=== PATIENT | female | born 1970 | race Caucasian/White ===

== ENCOUNTER 2018-08-15 09:32 | Outpatient (CLI) | payer OTHER, MEDICAID, SELFPAY ==
[2018-08-15] VITALS (8 sets, daily range): BP systolic 104–130; BP diastolic 36–77; PULSE 79–91; RESP 16–18; TEMP 36.7; O2SAT 95–100
--- NOTE | 2018-08-15 09:34 | DI.RAD.S_ITS ---
PROCEDURE: PAIN L INTERLAMINAR/CAUDAL INJ INDICATIONS: RADICULOPATHY FINDINGS: Fluoroscopic spot filming was performed to verify placement of spinal needles at the dorsal L5-S1 midline epidural level(s), as labeled on the films. Appropriate location(s) of the needle tip(s) was confirmed by injection of iodinated contrast. IMPRESSION: Successful needle tip localization for L5-S1 epidural steroid injection. Dictated by: Jose C Lowry M.D. on 08/15/2018 at 11:49 Approved by: Jose C Lowry M.D. on 08/15/2018 at 11:50
[2018-08-15] MEDS: MIDAZOLAM 5 MG/5 ML VIAL IV (10:40)
[2018-08-15] MEDS: fentaNYL 100 MCG/2 ML INJ 50 MCG IV (10:40)
[2018-08-15] MEDS: IOPAMIDOL 15 ML VIAL 3 ML INJ (10:45)
[2018-08-15] MEDS: BUPIVACAINE 0.25% (PF) VIAL 2 ML INJ (10:45)
[2018-08-15] MEDS: BETAMETHASONE 30 MG/5 ML MDV 6 MG INJ (10:46)
[2018-08-15] MEDS: DEXAMETHASONE 10 MG/ML VIAL 20 MG INJ (10:46)
--- NOTE | 2018-08-15 10:49 | PC.NURSE ---
ASSISTING PT OFF TABLE AND TRANSPORTING TO POST PROC AREA IN STABLE CONDITION
--- NOTE | 2018-08-15 10:52 | P.PCN_ITS ---
Procedures Date/Time Date of procedure: 08/15/18 Time of procedure: 10:51 General Procedure description: PROVIDER: Luis Parada DO Operative Note PREOP DIAGNOSIS 1. HNP WITH RADICULAR FEATURES, 2. MULTILEVEL CENTRAL STENOSIS, POST OP DIAGNOSIS 1. HNP WITH RADICULAR FEATURES, 2. MULTILEVEL CENTRAL STENOSIS, PROCEDURES 1. FLUORSCOPICALLY GUIDED CONTRAST CONTROLLED INTERLAMINAR EPIDURAL STEROID INJECTION - L5/S1 PHYSICIAN: Luis Parada DO INDICATIONS Daija is referred by Dr. Leyva for treatment of Bilateral Foraminal Stenosis L>R LE symptoms. FINDINGS Multilevel Central Spinal Stenosis with Nerve Root Compression DESCRIPTION OF PROCEDURE Fluoroscopically guided, contrast-controlled para left L5/S1 translaminar epidural steroid injection. Following denial of allergy and review of potential side effects and c omplications, including, but not necessarily limited to, infection, allergic reaction, local tissue breakdown, temporary as well as permanent nerve injury, paralysis, stroke and possible , the patient indicated that the patient understood and agreed to proceed. An informed consent document was signed by the patient, witnessed by a nurse, and placed in the patient's chart. Additionally, other treatment options including modalities, medications, and physical therapy were reviewed with the patient. After review of previous anaesthesic history and IV conscious sedation the patient was deemed safe to proceed with todays procedure with IV conscious sedation as ASA class II designation. Safety time-out was performed to confirm patient ID, procedure to be performed and site of procedure. IV sedation was accomplished with a combination of 2mg of Versed and 50mcg of Fentanyl administered by the RN after DO order, titrated to patient comfort during the course of the procedure while the patient remained responsive to all verbal commands. In the prone position, following sterile prep and drape of the lumbar region, the L5/S1 translaminar space was identified fluoroscopically. The skin was anesthetized via a 25-gauge, 1.5-inch needle with 1% lidocaine solution. At this point, a 22-gauge short bevel spinal needle was atraumatically introduced and advanced under fluoroscopic guidance into the region of the L5/S1 translaminar space. Depth was confirmed on lateral view. Radiological data, including multiple fluoroscopic views of the lumbar spine, reveal a spinal needle at the L5/S1 translaminar space. Lateral views then show placement of the needle in the epidural space. Subsequent views show contrast material flowing superiorly and inferiorly in the epidural space. No vascular or intrathecal uptake is observed. At this point, using loss of resistance technique with saline and air, the epidural space was entered. This was confirmed following negative aspiration with injection of approximately 1.5 cc of Isovue 200, showing excellent epidural flow without vascular or intrathecal uptake. At this point, 1 cc of 1% lidocaine solution combined with 3cc or 20mg of dexamethasone and 50mcg of Fentanyl was injected without incident. The patent tolerated the procedure without signs of symptoms of complications prior to transfer to the recovery area for further monitoring. The patient was then transferred to the recovery area where they were observed for an appropriate period of time after the injection. The patient reported a VAS score of 6 prior to the procedure and a post-procedure VAS of 0. Total Fluoroscopy Time: 11.8 seconds Total Conscious Sedation Time: 24min POST OP INSTRUCTIONS The patient was provided a Pain Log to continue to record their response to the target-specific procedure prior to follow-up visit with their referring physician. Additionally, specific post-injection care instructions and a contact number to our office were provided if concerns arise regarding possible complications associated with the procedure are suspected. Luis Parada DO
--- NOTE | 2018-08-15 11:31 | PC.NURSE ---
Pt returned from procedure awake, alert and able to transfer self from W/C to chair with standby assist. Resumed monitoring from Fariha HUERTA.
== END 2018-08-15 11:30 ==
LOC: RAD 09:33
PROVIDERS: PCP Family Medicine; Visit Provider Physical Medicine & Rehabilitation
DX: M51.16 Intervertebral disc disorders with radiculopathy, lumbar region (principal); M48.07 Spinal stenosis, lumbosacral region; M48.061 Spinal stenosis, lumbar region without neurogenic claudication
CPT/HCPCS: 62323; 99152; J0702; J1100; J2250; J3010

== ENCOUNTER 2018-11-16 10:12 | Outpatient (CLI) | payer OTHER, MEDICAID, SELFPAY ==
[2018-11-16] VITALS (8 sets, daily range): BP systolic 118–137; BP diastolic 60–80; PULSE 71–91; RESP 16–18; TEMP 36.7; O2SAT 99–100
--- NOTE | 2018-11-16 10:14 | DI.RAD.S_ITS ---
PROCEDURE: PAIN L/SI FACET INJ/BLK 1STL INDICATIONS: RADICULOPATHY FINDINGS: Fluoroscopic spot filming was performed to verify placement of spinal needles overlying L4-5, L5-S1 level(s), as labeled on the films. Appropriate location(s) of the needle tip(s) was confirmed by injection of iodinated contrast. IMPRESSION: Fluoroscopic markers as above. Recommend correlation to real-time operative report. Dictated by: Tresa Nolen M.D. on 11/16/2018 at 18:28 Approved by: Tresa Nolen M.D. on 11/16/2018 at 18:29
--- NOTE | 2018-11-16 11:13 | P.PCN_ITS ---
Procedures Date/Time Date of procedure: 11/16/18 Time of procedure: 11:13 General Procedure description: PREOP DIAGNOSIS 1. FACET ARTHROPATHY 2. AXIAL LBP 3. MULTILEVEL DDD POST OP DIAGNOSIS 1. FACET ARTHROPATHY 2. AXIAL LBP 3. MULTILEVEL DDD PROCEDURES 1. FLUORSCOPICALLY GUIDED CONTRAST CONTROLLED FACET JOINT INJECTIONS BILATERAL L4/5, L5/S1 PHYSICIAN: Luis Parada, DO INDICATIONS Daija is referred by Dr. Leyva for treatment of Axial LBP FINDINGS Multilevel Facet Arthropathy with Clinically significant axial LBP DESCRIPTION OF PROCEDURE Fluoroscopically guided, contrast-controlled bilateral L4/5, L5/S1 facet joint injections. Following review of allergy and review of potential side effects and complications, including, but not necessarily limited to, infection, allergic reaction, local tissue breakdown, stroke, temporary or permanent nerve injury, paralysis, and possible , the patient indicated that the patient understood and agreed to proceed. An informed consent document was signed by the patient, witnessed by a nurse, and placed in the patient's chart. Additionally, other treatment options including medications, modalities, and physical therapy were reviewed with the patient. After review of previous anaesthesic history and IV conscious sedation the patient was deemed safe to proceed with todays procedure with IV conscious sedation as ASA class II designation. Safety time-out was performed to confirm patient ID, procedure to be performed and site of procedure. IV sedation was accomplished with a combination of 3mg of Versed and 50mcg of Fentanyl was administered by the RN after DO order, titrated to patient comfort during the course of the procedure while the patient remained responsive to all verbal commands In the prone position, following sterile prep and drape of the lumbar region, the posterior aspect of the L4/5, L5/S1 facet joints were identified fluoroscopically. The skin was anesthetized via a 25-gauge 1.5-inch needle with 1% lidocaine solution into the corresponding facet joints. At this point, a 22- gauge 3.5-inch spinal needle was atraumatically introduced and advanced under fluoroscopic guidance into the corresponding facet joints. Following negative aspiration, injections of approximately 0.2-cc of Isovue 200 confirmed interarticular placement without vascular uptake. The identical procedure was then performed at the L4/5, L5/S1 facet joints on the left. Radiological data, including multiple fluoroscopic views of the lumbosacral spine, reveal a spinal needle at the L4/5, L5/S1 facet joints bilaterally. Subsequent views show flow of contrast material both superiorly and inferiorly within the joint space without vascular or intrathecal uptake. At this point, a total of 0.5 cc including a mixture of 0.25cc Marcaine and 0.25cc betamethasone was injected without complication into each of the corresponding facet joints. The patient tolerated the procedure well without signs or symptoms of complications prior to transfer to the recovery area continued monitoring without incident. The patient was then transferred to the recovery area where they were observed for an appropriate period of time after the injection. The patient reported a VAS score of 7 prior to the procedure and a post- procedure VAS of 0. Total Fluoroscopy Time: 20.3 seconds Total Conscious Sedation Time: 24min POST OP INSTRUCTIONS The patient was provided a Pain Log to continue to record their response to the target-specific procedure prior to follow-up visit with their referring physician. Additionally, specific post-injection care instructions and a contact number to our office were provided if concerns arise regarding possible complications associated with the procedure are suspected. Luis Parada DO Complications: none
[2018-11-16] MEDS: fentaNYL 100 MCG/2 ML INJ 50 MCG IV (11:20)
[2018-11-16] MEDS: MIDAZOLAM 5 MG/5 ML VIAL IV (11:20)
[2018-11-16] MEDS: LIDOCAINE 1% 20 ML 10 ML INJ (11:24)
[2018-11-16] MEDS: BETAMETHASONE 30 MG/5 ML MDV 12 MG INJ (11:24)
[2018-11-16] MEDS: IOPAMIDOL 15 ML VIAL 3 ML INJ (11:24)
[2018-11-16] MEDS: BUPIVACAINE 0.5% (PF) VIAL 2 ML INJ (11:24)
--- NOTE | 2018-11-16 11:39 | PC.NURSE ---
Pt tolerated procedure well. Pt able to get off the table with standby assist. Transferred pt via wheelchair to pre procedure room for continued monitoring with Fariha HUERTA.
--- NOTE | 2018-11-16 11:49 | PC.NURSE ---
ACCEPTED CARE OF PT IN POST PROC AREA IN STABLE CONDITION
== END 2018-11-16 12:03 | disposition home or self-care (01) ==
LOC: RAD 10:13
PROVIDERS: PCP Family Medicine; Visit Provider Physical Medicine & Rehabilitation
DX: M51.26 Other intervertebral disc displacement, lumbar region (principal); M47.27 Other spondylosis with radiculopathy, lumbosacral region
CPT/HCPCS: 64493; 64494; 99152; J0702; J2250; J3010

== ENCOUNTER 2019-03-22 11:01 | Outpatient (CLI) | payer OTHER, MEDICAID, SELFPAY ==
[2019-03-22] VITALS (8 sets, daily range): BP systolic 125–146; BP diastolic 66–87; PULSE 74–97; RESP 16; TEMP 37.1; O2SAT 96–100
--- NOTE | 2019-03-22 11:06 | DI.RAD.S_ITS ---
PROCEDURE: XR SHOULDER LT MIN 2V INDICATIONS: Shoulder pain and impingement TECHNIQUE: 3 views of the shoulder were acquired. COMPARISON: None. FINDINGS: Bones: No fractures or dislocations. No suspicious bony lesions. Visualized ribs appear intact. Severe AC joint degeneration. Prominent glenohumeral spurring and sclerosis Soft tissues: No suspicious soft tissue calcifications. IMPRESSION: Moderate left shoulder joint degeneration. If the patient's pain or other symptoms persist, consider further evaluation with MRI Dictated by: Travon Lopes M.D. on 03/22/2019 at 14:03 Approved by: Travon Lopes M.D. on 03/22/2019 at 14:25
--- NOTE | 2019-03-22 11:06 | DI.RAD.S_ITS ---
PROCEDURE: XR SHOULDER RT MIN 2V INDICATIONS: Shoulder pain and impingement TECHNIQUE: 3 views of the shoulder were acquired. COMPARISON: None. FINDINGS: Bones: No fractures or dislocations. No suspicious bony lesions. Visualized ribs appear intact. Severe AC joint degeneration. Slight superior subluxation of the lateral clavicle relative to the acromion, technically age-indeterminate finding. Glenohumeral joint spurring and sclerosis are also noted Soft tissues: No suspicious soft tissue calcifications. IMPRESSION: Right shoulder joint degeneration as above Dictated by: Travon Lopes M.D. on 03/22/2019 at 14:01 Approved by: Travon Lopes M.D. on 03/22/2019 at 14:03
--- NOTE | 2019-03-22 11:06 | DI.RAD.S_ITS ---
PROCEDURE: PAIN L INTERLAMINAR/CAUDAL INJ INDICATIONS: SPINAL STENOSIS FINDINGS: Fluoroscopic spot filming was performed to verify placement of spinal needles at the L5-S1 level(s), as labeled on the films. Appropriate location(s) of the needle tip(s) was confirmed by injection of iodinated contrast. Dictated by: Travon Lopes M.D. on 03/22/2019 at 15:36 Approved by: Travon Lopes M.D. on 03/22/2019 at 15:36
--- NOTE | 2019-03-22 11:06 | DI.RAD.S_ITS ---
PROCEDURE: XR CERVICAL SPINE 4V OR 5V INDICATIONS: Bilateral arm paresthesias TECHNIQUE: 6 views of the cervical spine acquired. COMPARISON: None. FINDINGS: Bones: No fractures or dislocations to the T1 level. Straightening of the normal lordotic curvature. Multilevel degenerative endplate sclerosis and spurring. Diffuse facet arthropathy. Chronic appearing ununited osteophyte seen at the C4-C5 and C5-C6 level. Mild narrowing of the C4-C5 disc space. Mild C7-T1 left bony foraminal stenosis Mild right C4-C5 bony foraminal narrowing. Soft tissues: No prevertebral soft tissue swelling. IMPRESSION: Mild diffuse cervical spondylosis and facet arthropathy. Straightening of the normal lordotic curvature. Mild left C7-T1 bony foraminal stenosis Mild right C4-C5 bony foraminal stenosis Dictated by: Travon Lopes M.D. on 03/22/2019 at 16:44 Approved by: Travon Lopes M.D. on 03/22/2019 at 16:48
[2019-03-22] MEDS: fentaNYL 100 MCG/2 ML INJ 50 MCG IV (13:05)
[2019-03-22] MEDS: MIDAZOLAM 5 MG/5 ML VIAL IV (13:05)
[2019-03-22] MEDS: DEXAMETHASONE 10 MG/ML VIAL 20 MG INJ (13:07)
[2019-03-22] MEDS: IOPAMIDOL 15 ML VIAL 3 ML INJ (13:07)
[2019-03-22] MEDS: BUPIVACAINE 0.25% (PF) VIAL 2 ML INJ (13:07)
[2019-03-22] MEDS: BETAMETHASONE 30 MG/5 ML MDV 6 MG INJ (13:08)
--- NOTE | 2019-03-22 13:09 | PC.NURSE ---
ASSISTING PT OFF TABLE AND TRANSPORTING TO POST PROC AREA IN STABLE CONDITION.
--- NOTE | 2019-03-22 13:14 | P.PCN_ITS ---
Procedures Date/Time Date of procedure: 03/22/19 Time of procedure: 13:14 General Procedure description: PROVIDER: Luis Parada DO Operative Note PREOP DIAGNOSIS 1. HNP WITH RADICULAR FEATURES, 2. MULTILEVEL CENTRAL STENOSIS, POST OP DIAGNOSIS 1. HNP WITH RADICULAR FEATURES, 2. MULTILEVEL CENTRAL STENOSIS, PROCEDURES 1. FLUORSCOPICALLY GUIDED CONTRAST CONTROLLED INTERLAMINAR EPIDURAL STEROID INJECTION - L5/S1 PHYSICIAN: Luis Parada DO INDICATIONS Daija is referred by Dr. Leyva for treatment of Bilateral Foraminal Stenosis L>R LE symptoms. FINDINGS Multilevel Central Spinal Stenosis with Nerve Root Compression DESCRIPTION OF PROCEDURE Fluoroscopically guided, contrast-controlled L5/S1 translaminar epidural steroid injection. Following review of allergy and review of potential side effects and complicati ons, including, but not necessarily limited to, infection, allergic reaction, local tissue breakdown, temporary as well as permanent nerve injury, paralysis, stroke and possible , the patient indicated that the patient understood and agreed to proceed. An informed consent document was signed by the patient, witnessed by a nurse, and placed in the patient's chart. Additionally, other treatment options including modalities, medications, and physical therapy were reviewed with the patient. After review of previous anaesthesic history and IV conscious sedation the patient was deemed safe to proceed with todays procedure with IV conscious sedation as ASA class II designation. Safety time-out was performed to confirm patient ID, procedure to be performed and site of procedure. IV sedation was accomplished with a combination of 2mg of Versed and 50mcg of Fentanyl administered by the RN after DO order, titrated to patient comfort during the course of the procedure while the patient remained responsive to all verbal commands. In the prone position, following sterile prep and drape of the lumbar region, the L5/S1 translaminar space was identified fluoroscopically. The skin was ane sthetized via a 25-gauge, 1.5-inch needle with 1% lidocaine solution. At this point, a 22-gauge short bevel spinal needle was atraumatically introduced and advanced under fluoroscopic guidance into the region of the L5/S1 translaminar space. Depth was confirmed on lateral view. Radiological data, including multiple fluoroscopic views of the lumbar spine, reveal a spinal needle at the L5/S1 translaminar space. Lateral views then show placement of the needle in the epidural space. Subsequent views show contrast material flowing superiorly and inferiorly in the epidural space. No vascular or intrathecal uptake is observed. At this point, using loss of resistance technique with saline and air, the epidural space was entered. This was confirmed following negative aspiration with injection of approximately 1.5 cc of Isovue 200, showing excellent epidural flow without vascular or intrathecal uptake. At this point, 1cc of 1% lidocaine solution combined with 3cc or 20mg of dexamethasone and 6mg of betamethasone was injected without incident. The patent tolerated the procedure without signs of symptoms of complications prior to transfer to the recovery area for further monitoring. The patient was then transferred to the recovery area where they were observed for an appropriate period of time after the injection. The patient reported a VAS score of 6 prior to the procedure and a post-procedure VAS of 0. Total Fluoroscopy Time: 11.8 seconds Total Conscious Sedation Time: 24min POST OP INSTRUCTIONS The patient was provided a Pain Log to continue to record their response to the target-specific procedure prior to follow-up visit with their referring physician. Additionally, specific post-injection care instructions and a contact number to our office were provided if concerns arise regarding possible complications associated with the procedure are suspected. Luis Parada, Complications: none
== END 2019-03-22 13:42 | disposition home or self-care (01) ==
LOC: RAD 11:06
PROVIDERS: Family Provider Family Medicine; PCP Family Medicine; Visit Provider Physical Medicine & Rehabilitation
DX: M51.17 Intervertebral disc disorders with radiculopathy, lumbosacral region (principal); M48.07 Spinal stenosis, lumbosacral region; M25.511 Pain in right shoulder; M25.512 Pain in left shoulder; M19.011 Primary osteoarthritis, right shoulder; M19.012 Primary osteoarthritis, left shoulder; M47.22 Other spondylosis with radiculopathy, cervical region; M48.02 Spinal stenosis, cervical region; M48.03 Spinal stenosis, cervicothoracic region; R20.2 Paresthesia of skin; M75.42 Impingement syndrome of left shoulder; M75.41 Impingement syndrome of right shoulder
CPT/HCPCS: 62323; 72050; 73030; 99152; J0702; J1100; J2250; J3010

== ENCOUNTER → 2019-09-06 09:15 | Outpatient (CLI) | payer OTHER, MEDICAID, SELFPAY | PROVIDERS: Family Provider Family Medicine; PCP Family Medicine; Referring Provider Registered Nurse; Visit Provider Registered Nurse | DX: M25.511 Pain in right shoulder (principal); M25.512 Pain in left shoulder; M54.12 Radiculopathy, cervical region | CPT/HCPCS: 95886; 95911 ==

== ENCOUNTER 2019-09-12 13:48 | Emergency (ER) | payer OTHER, MEDICAID, SELFPAY ==
--- NOTE | 2019-09-12 13:56 | DI.RAD.S_ITS ---
PROCEDURE: XR CHEST 1V INDICATIONS: chest pain TECHNIQUE: One view of the chest was acquired. COMPARISON: None. FINDINGS: Surgical changes and devices: None. Lungs and pleura: Lungs are clear. No pleural effusions or pneumothorax. Mediastinum: Mediastinal contours appear normal. Heart size is enlarged. Bones and chest wall: No suspicious bony lesions. Overlying soft tissues appear unremarkable. IMPRESSION: No acute pulmonary process. Dictated by: Tresa Nolen M.D. on 09/12/2019 at 14:21 Approved by: Tresa Nolen M.D. on 09/12/2019 at 14:23
[2019-09-12 13:57] VITALS: BP 161/75; PULSE 77; RESP 20; TEMP 36.7; O2SAT 97
--- NOTE | 2019-09-12 14:06 | ED.CHESTPAIN ---
HPI - Chest Pain General Chief Complaint: Chest Pain Stated Complaint: chest tightness/cat scratch fever x21 days Time Seen by Provider: 09/12/19 14:06 Source: patient Mode of arrival: Ambulatory History of Present Illness HPI narrative: 49-year-old woman who presents to the emergency room because her primary care doctor told for to come for further evaluation of chest pain. Her story is rather scattered and her medical history is complicated by fibromyalgia, chronic pain for which she is on chronic prescribed opioids, asthma with continued tobacco abuse, 2 prior brain aneurysms, bilateral shoulder pain with upper extremity paresthesias. She was scheduled to come to [place] today for EMG studies. She had called her primary doctor complaining about 4 episodes of chest pain over the last week. The 1st 3 were all associated with being outside and working in her garden. Initially started center chest radiated across the entire chest in a bandlike pattern and then up into both shoulders associated with dyspnea and resolved spontaneously within 30 minutes. She had another episode while driving to this scheduled EMG study today. She does not describe any diaphoresis or reflux type symptomatology when she has experienced these episodes. She presented to her outpatient study and then came to the emergency room. While in the emergency room sitting and talking comfortably she describes similar central chest pain radiating in a bandlike pattern. EKG is entirely unremarkable on initial presentation. The patient herself does not seem to be particularly concerned with the chest pain has attributed it to her asthma and chronic shoulder pain and continues to return to the fact that her doctor told her to come to the ER. She also notes that she currently has 15 kittens living in her house. She is working on taming the kittens to rehab was them. She notes that she is allergic to cats and it does make her asthma worse. She has some scratches over her lower extremities and is somewhat concerned that she may have cat scratch fever. Related Data Home Medications Medication Instructions Recorded Confirmed albuterol sulfate 5 mg/mL(0.5 %) 2.5 mg INHALATION TID-QID PRN 07/27/18 09/12/19 solution for nebulization albuterp; #1 ea 07/27/18 04/12/19 atorvastatin 40 mg tablet 40 mg PO DAILY 07/27/18 09/12/19 cholecalciferol (vitamin D3) 25 1,000 unit PO DAILY 07/27/18 09/12/19 mcg (1,000 unit) capsule cranberry 500 mg capsule 500 mg PO DAILY cap 07/27/18 09/12/19 diazepam 5 mg tablet 5 mg PO BID 07/27/18 09/12/19 fluticasone 500 mcg-salmeterol 50 1 inhalation INHALATION BID 07/27/18 09/12/19 mcg/dose blistr powdr for inhalation gabapentin 300 mg capsule 300 mg PO BID 07/27/18 09/12/19 hair/skin/nail PO .qd 07/27/18 09/12/19 hydrocodone 5 mg-acetaminophen 325 1 tab PO Q6H 07/27/18 09/12/19 mg tablet ipratropium bromide 0.02 % 1.25 ml INHALATION Q6-8H PRN 07/27/18 09/12/19 solution for inhalation metformin 1,000 mg tablet 1,000 mg PO DAILY 07/27/18 09/12/19 omeprazole 20 mg capsule,delayed 20 mg PO DAILY 07/27/18 09/12/19 release tiotropium bromide 1.25 2 puff INHALATION DAILY 07/27/18 09/12/19 mcg/actuation mist for inhalation Previous Rx's Medication Instructions Recorded celecoxib 200 mg capsule See Rx Instructions .ROUTE 07/09/19 .COMPLEX #30 capsule diclofenac sodium 1 % topical gel 2 g TOP QID #100 gram MDD 8 gm 07/27/19 Allergies Allergy/AdvReac Type Severity Reaction Status Date / Time cinnamon Allergy Severe Anaphylaxis Verified 09/12/19 13:03 peanut Allergy Severe Anaphylaxis Verified 09/12/19 13:03 bupropion [From Wellbutrin] Allergy Intermediate vision and Verified 09/12/19 13:03 auditory reaction oxycodone AdvReac Intermediate itching Verified 09/12/19 13:03 Review of Systems Review of Systems Narrative: Pertinent positive and negative findings as per HPI Remarkably positive for -chills, generalized weakness -minor dry cough that is unchanged, dyspnea it is associated with the episodes of chest pain -muscle weakness with upper extremity numbness and tingling -fatigue worse over the last at least week if not longer Remainder of review of systems is otherwise unremarkable for Constitutional: Fevers, ENT: No sore throat, neck pain, ear pain CV: Chest pain, palpitations, dyspnea on exertion GI: Nausea, vomiting, diarrhea, change in bowel habits, black or bloody stools : Dysuria, hematuria, flank pain Skin: Rashes, nonhealing lesions Neuro: Syncope, dizziness, Psych: Depression, anxiety, suicidal ideation Patient History Medical History (Updated 09/12/19 @ 16:04 by Lorena Serrano MD) Acid reflux (Acute) Bilateral shoulder pain (Chronic) Cervical radicular pain (Chronic) COPD (chronic obstructive pulmonary disease) (Acute) Diabetes (Acute) DJD of both shoulders (Acute) Facet arthropathy, lumbosacral (Chronic) Hyperlipidemia (Acute) Trochanteric bursitis of both hips (Chronic) Surgical History History of (Acute) History of carpal tunnel surgery of left wrist (Acute) History of carpal tunnel surgery of right wrist (Acute) History of knee surgery (Acute) Status post de Quervain's release surgery (Acute) Family History Mother Diabetes mellitus Father Emphysema lung Family/Other Breast cancer Liver disease Social History (Updated 03/30/19 @ 13:05 by Marielle Sheppard) marital status: Smoking Status: Current every day smoker Smoking Status: Current every day smoker Exam Narrative Exam Narrative: General: Healthy appearing, in no acute distress. Able to cooperate fully with history. Well-nourished well-developed HEENT: Moist mucous membranes, normal sclera with reactive pupils, Neck: No JVD, supple, no cervical adenopathy Respiratory: Lungs with mild scattered wheezing in the upper lung narvaez but no rales no rhonchi. Full and symmetrical air movement Cardiac: Regular rate and rhythm no murmurs no bruits Abdomen: Soft nontender good bowel tones, no flank pain Skin: Warm and dry, multiple minor scratches from her kittens over both lower extremities none of which are overtly infected, have any lymphangitis spread, or any discharge. Groin: No inguinal adenopathy Neurologic: Grossly neurologically intact with no obvious asymmetries or abnormalities Extremities: No trauma, well perfused Psych: Cooperative, appropriate affect Initial Vital Signs Initial Vital Signs: Vital Signs Temperature 98.1 F 09/12/19 13:57 Pulse Rate 77 09/12/19 13:57 Respiratory Rate 20 09/12/19 13:57 Blood Pressure 161/75 H 09/12/19 13:57 Pulse Oximetry 97 09/12/19 13:57 Course Orders Ordered: ED Orders 09/12/19 13:56 XR chest 1V Stat EKG-12 Lead Stat 09/12/19 14:30 Complete Blood Count AUTO DIFF Stat Comprehensive Metabolic Panel Stat Lipase Stat Partial Thromboplastin Time Stat Prothrombin Time INR Stat Troponin & CK Cardiac Panel Stat Vital Signs Vital signs: Vital Signs - 8 hr 09/12/19 13:57 09/12/19 14:35 09/12/19 15:00 Temperature 98.1 F Pulse Rate 77 77 73 Respiratory Rate 20 18 19 Blood Pressure 161/75 H Blood Pressure [Right Arm] 135/98 H 143/64 H Pulse Oximetry 97 97 94 09/12/19 15:30 Temperature Pulse Rate 79 Respiratory Rate 19 Blood Pressure Blood Pressure [Right Arm] 147/61 H Pulse Oximetry 94 MDM - Chest Pain Medical Records Data Attestation: I reviewed the patient's medical records. Lab Data Attestation: I reviewed the patient's lab results. Result diagrams: 09/12/19 14:30 09/12/19 14:30 Labs: Lab Results 09/12/19 09/12/19 09/12/19 Range/Units 14:30 14:30 14:30 WBC 6.9 (4.5-11.0) X10^3/uL RBC 4.33 (4.0-5.2) X10^6/uL Hgb 10.6 L (12.0-16.0) g/dL Hct 33.1 L (36-46) % MCV 76.4 L (80-100) fL MCH 24.6 L (26-34) PG MCHC 32.2 (30-36) % RDW 17.0 H (11.6-14.8) % Plt Count 231 (150-400) X10^3/uL Neut % (Auto) 59.3 (50-75) % Lymph % (Auto) 32.5 (25-40) % Mchenry % (Auto) 4.6 (3-14) % Eos % (Auto) 2.3 (2-4) % Baso % (Auto) 1.3 (0-2) % Neut # (Auto) 4100 (3968-7506) /uL Lymph # (Auto) 2300 (4629-2045) /uL Mchenry # (Auto) 300 (0-900) /uL Eos # (Auto) 200 (0-450) /uL Baso # (Auto) 100 (0-100) /uL PT 14.0 H (10.1-12.7) SECONDS INR 1.2 (0.9-1.3) APTT 33 (26.4-36.2) SECONDS Sodium 137 (137-145) mmol/L Potassium 3.6 (3.4-5.1) mmol/L Chloride 106 (98-107) mmol/L Carbon Dioxide 25 (22-32) mmol/L BUN 12 (7-17) mg/dL Creatinine 0.59 (0.52-1.04) mg/dL Estimated GFR > 60.0 (>60) mL/min BUN/Creatinine Ratio 20.3 (6-22) Glucose 98 (70-100) mg/dL Calcium 9.0 (8.4-10.2) mg/dL Total Bilirubin 0.3 (0.2-1.3) mg/dL AST 22 (14-36) IU/L ALT 13 (<35) IU/L Alkaline Phosphatase 59 (38-126) U/L Total Creatine Kinase 196 H (30-135) U/L CK-MB (CK-2) 2.91 H (<2.37) ng/mL CK-MB (CK-2) Rel Index 1.5 (1.5-5.0) % Troponin I < 0.012 (0.01-0.034) ng/mL Total Protein 6.5 (6.3-8.2) g/dL Albumin 4.0 (3.5-5.0) g/dL Globulin 2.5 (1.7-4.1) g/dL Albumin/Globulin Ratio 1.6 (1.0-2.8) Lipase 47 (23-300) U/L Imaging Data Chest x-ray: Radiologist's Impression: IMPRESSION: No acute pulmonary process. Dictated by: Tresa Nolen M.D. on 09/12/2019 at 14:21 ECG Data Attestation: I personally reviewed and interpreted this ECG as follows: Interpretation: Sinus rhythm at a rate of 79. Normal axis, normal interval No acute ischemic changes MDM Narrative Medical decision making narrative: 49-year-old woman presents with a history chest pain radiating up into the shoulders and down her arms for the last week seems to be getting worse and she has had now for episodes. Workup today is entirely unremarkable. She had another episode of the pain earlier this morning and then again while in the emergency department with no EKG changes and no elevated troponin. Based on her history and lab work today my suspicion for cardiac etiology for this chest pain is low. If she continues to have persistent pain then an outpatient myocardial perfusion study or other stress testing may be very appropriate. Will ask that she follow-up with her primary care physician. She is safe for home discharge at this time Discharge Plan Departure Patient Disposition: Home Clinical Impression: Elevated blood pressure reading Chest pain Qualifiers: Chest pain type: other chest pain Qualified Code(s): R07.89 - Other chest pain Instructions: DI for Atypical Chest Pain Activity Restrictions/Additional Instructions: Thank you for coming in today Your workup exam EKG and chest x-ray do not suggest your heart as the reason for your chest pain. This is not an acute heart attack or heart attack like syndrome. I am finding no evidence of infection or lung issues. I suspect that some of the pain you are experiencing 3 your upper back shoulders an interior jaw is related to her fibromyalgia as well as her chronic shoulder pain. Please discuss this with her primary care physician. She may decide that some outpatient cardiac risk stratify and studies, like stress tests, may be appropriate. Regarding her elevated blood pressure in the emergency department, we do not typically diagnosis high blood pressure from a single day reading. Please keep track of these numbers and again discussed these with your primary care physician to make sure that we are not missing the opportunity to treat chronic issues that can cause problems. If your finding new symptoms or have additional concerns, please feel free to return to the emergency department and I am happy to re-evaluate. I wish you the very best Prescriptions: No Action celecoxib 200 mg capsule See Rx Instructions .ROUTE .COMPLEX Qty: 30 RF: 4 diclofenac sodium 1 % gel 2 g TOP QID MDD 8 gm Qty: 100 RF: 5 atorvastatin 40 mg tablet 40 mg PO DAILY RF: 0 metformin 1,000 mg tablet 1,000 mg PO DAILY RF: 0 fluticasone propion-salmeterol [Wixela Inhub] 500-50 mcg/dose blister with device 1 inhalation INHALATION BID RF: 0 gabapentin 300 mg capsule 300 mg PO BID RF: 0 omeprazole 20 mg capsule,delayed release(DR/EC) 20 mg PO DAILY RF: 0 cranberry 500 mg capsule 500 mg PO DAILY RF: 0 Spiriva Respimat 1.25 mcg/actuation mist 2 puff INHALATION DAILY RF: 0 (DME) albuterp; inhaler Qty: 1 RF: 0 hair/skin/nail capsule PO .qd RF: 0 hydrocodone-acetaminophen 5-325 mg tablet 1 tab PO Q6H RF: 0 albuterol sulfate 5 mg/mL solution for nebulization 2.5 mg INHALATION TID-QID PRNRF: 0 ipratropium bromide 0.02 % solution 1.25 ml INHALATION Q6-8H PRNRF: 0 diazepam 5 mg tablet 5 mg PO BID RF: 0 cholecalciferol (vitamin D3) 1,000 unit capsule 1,000 unit PO DAILY RF: 0 Referrals: Lisa Leyva MD [Primary Care Provider] -
[2019-09-12 14:35] VITALS: BP 135/98; PULSE 77; RESP 18; O2SAT 97
[2019-09-12 14:47] LABS: Add Manual Diff / Slide Review NO; Basophils Absolute Auto 100 /uL (0-100); Basophils Percent Auto 1.3 % (0-2); Eosinophils Absolute Auto 200 /uL (0-450); Eosinophils Percent Auto 2.3 % (2-4); Hematocrit 33.1 % (36-46); Hemoglobin 10.6 g/dL (12.0-16.0); Lymphocytes Absolute Auto 2300 /uL (1100-4500); Lymphocytes Percent Auto 32.5 % (25-40); Mean Corpuscular HGB Conc 32.2 % (30-36); Mean Corpuscular Hemoglobin 24.6 PG (26-34); Mean Corpuscular Volume 76.4 fL (80-100); Monocytes Absolute Auto 300 /uL (0-900); Monocytes Percent Auto 4.6 % (3-14); Neutrophils Absolute Auto 4100 /uL (1500-7000); Neutrophils Percent Auto 59.3 % (50-75); Platelet Count 231 X10^3/uL (150-400); Red Blood Cell Count 4.33 X10^6/uL (4.0-5.2); White Blood Cell Count 6.9 X10^3/uL (4.5-11.0)
[2019-09-12 14:53] LABS: INR 1.2 (0.9-1.3)
[2019-09-12 14:56] LABS: PTT Partial Thromboplastin Tim 33 SECONDS (26.4-36.2)
[2019-09-12 14:58] LABS: Alanine Aminotransferase 13 IU/L (<35); Albumin Globulin Ratio 1.6 (1.0-2.8); Alkaline Phosphatase 59 U/L (38-126); Aspartate Aminotransferase 22 IU/L (14-36); BUN Creatinine Ratio 20.3 (6-22); Bilirubin Total 0.3 mg/dL (0.2-1.3); Blood Urea Nitrogen 12 mg/dL (7-17); Carbon Dioxide 25 mmol/L (22-32); Chloride 106 mmol/L (98-107); Creatine Kinase 196 U/L (30-135); Estimated Glomerular Filt Rate > 60.0 mL/min (>60); Globulin 2.5 g/dL (1.7-4.1); Glucose 98 mg/dL (70-100); HEMOLYSIS < 15 (0-50); Lipase 47 U/L (23-300); Potassium 3.6 mmol/L (3.4-5.1); Sodium 137 mmol/L (137-145); Total Protein 6.5 g/dL (6.3-8.2)
[2019-09-12 15:00] VITALS: BP 143/64; PULSE 73; RESP 19; O2SAT 94
[2019-09-12 15:09] LABS: Troponin I < 0.012 ng/mL (0.01-0.034)
[2019-09-12 15:14] LABS: CKMB % Relative Index 1.5 % (1.5-5.0); Creatine Kinase MB 2.91 ng/mL (<2.37)
[2019-09-12 15:30] VITALS: BP 147/61; PULSE 79; RESP 19; O2SAT 94
[2019-09-12 16:00] VITALS: BP 148/73; PULSE 89; RESP 20; O2SAT 96
== END 2019-09-12 16:21 | disposition home or self-care (01) ==
PROVIDERS: Emergency Provider Emergency Medicine; Family Provider Family Medicine; PCP Family Medicine
DX: R07.89 Other chest pain (principal); R03.0 Elevated blood-pressure reading, without diagnosis of hypertension; M51.26 Other intervertebral disc displacement, lumbar region; M19.011 Primary osteoarthritis, right shoulder; M19.012 Primary osteoarthritis, left shoulder; M25.512 Pain in left shoulder; M25.511 Pain in right shoulder; M47.27 Other spondylosis with radiculopathy, lumbosacral region; Z98.890 Other specified postprocedural states; Z86.79 Personal history of other diseases of the circulatory system
CPT/HCPCS: 20611; 36415; 71045; 80053; 82550; 82553; 83690; 84484; 85025; 85610; 85730; 93005; 99214; 99284; J0702

== ENCOUNTER → 2019-10-29 09:46 | Outpatient (CLI) | payer OTHER, MEDICAID, SELFPAY ==
[2019-10-30 07:49] LABS: COVID19 Sendout Not Detected (Not Detect)
== END ==
PROVIDERS: Family Provider Family Medicine; PCP Family Medicine; Visit Provider Physician Assistant
DX: Z11.59 Encounter for screening for other viral diseases (principal)
CPT/HCPCS: 87635

== ENCOUNTER 2019-11-01 13:57 | Outpatient (CLI) | payer OTHER, MEDICAID, SELFPAY ==
[2019-11-01] VITALS (9 sets, daily range): BP systolic 126–154; BP diastolic 65–75; PULSE 62–80; RESP 3–17; TEMP 36.7; O2SAT 98–100
--- NOTE | 2019-11-01 13:58 | DI.RAD.S_ITS ---
PROCEDURE: PAIN L/S TRANSFORAMINAL INJECT INDICATIONS: SPONDYLOSIS COMPARISON: None. FINDINGS: Fluoroscopic spot filming was performed to verify placement of spinal needles at the L5-S1 level(s), as labeled on the films. Appropriate location(s) of the needle tip(s) was confirmed by injection of iodinated contrast. IMPRESSION: Fluoroscopy for pain management. Dictated by: Stone Coffey M.D. on 11/01/2019 at 17:30 Approved by: Stone Coffey M.D. on 11/01/2019 at 17:32
[2019-11-01] MEDS: MIDAZOLAM 5 MG/5 ML VIAL IV (15:24)
[2019-11-01] MEDS: fentaNYL 100 MCG/2 ML INJ 50 MCG IV (15:24)
[2019-11-01] MEDS: BUPIVACAINE 0.25% (PF) VIAL 2 ML INJ (15:30)
[2019-11-01] MEDS: BETAMETHASONE 30 MG/5 ML MDV 6 MG INJ (15:31)
[2019-11-01] MEDS: DEXAMETHASONE 10 MG/ML VIAL 20 MG INJ (15:31)
[2019-11-01] MEDS: IOPAMIDOL 15 ML VIAL 3 ML INJ (15:32)
--- NOTE | 2019-11-01 15:38 | P.PCN_ITS ---
Date/Time/Diagnoses Date of procedure: 11/01/19 Time of procedure: 15:38 Pre-procedure diagnosis: 1. FORAMINAL STENOSIS WITH LE SYMPTOMS Post-procedure diagnosis: same Procedure Notes Procedure: 1. FLUOROSCOPICALLY GUIDED CONTRAST CONTROLLED TRANSFORAMINAL EPIDURAL STEROID INJECTION - Left L5/S1 Indications: Daija is referred by for treatment of Foraminal Stenosis with Left LE Symptoms Physician: Luis Parada Total Fluoroscopy time (seconds): 10 Total sedation minutes: 11 Complications: none Procedure in detail & Post-procedure care: FINDINGS Foraminal Nerve Root Compression secondary to disc disease and facet hypertrophy DESCRIPTION OF PROCEDURE Following review of allergy and review of potential side effects and complications, including, but not necessarily limited to, infection, allergic reaction, local tissue breakdown, stroke, temporary or permanent nerve injury, paralysis, and possible , the patient indicated that the patient understood and agreed to proceed. An informed consent document was signed by the patient, witnessed by a nurse, and placed in the patient's chart. Additionally, other treatment options including medications, modalities, and physical therapy were reviewed with the patient. After review of previous anaesthesic history and IV conscious sedation the patient was deemed safe to proceed with today?s procedure with IV conscious sedation as ASA class II designation. Safety time-out was performed to confirm patient ID, procedure to be performed and site of procedure. IV sedation was accomplished with a combination of 2mg of Versed and 50mcg of Fentanyl was administered by the RN after DO order, titrated to patient comfort during the course of the procedure while the patient remained responsive to all verbal comm ands In the prone position following sterile prep and drape of the lumbar region, the Left L5/S1 posterior neuroforamen was identified fluoroscopically. The skin was anesthetized via a 25-gauge 1.5-inch needle with 1% lidocaine solution. At this point, a 25-gauge 3.5-inch spinal needle was atraumatically introduced and advanced under fluoroscopic guidance through the posterior Left L5/S1 niya roforamen to approximately the anterior aspect of the canal. Depth was confirmed on lateral view. Following negative aspiration, injection of approximately 1.5 cc of Isovue 200 under live fluoroscopy in the AP view confirmed excellent flow along the nerve root, into the epidural space without vascular or intrathecal uptake observed Radiological data, including multiple fluoroscopic views of the lumbosacral spine, reveal a spinal needle at the Left L5/S1 posterior neuroforamen. Subsequent views show flow of contrast material flowing superiorly and inferiorly along the nerve root confirming epidural flow. Subsequently, a test dose of 1.5 cc of 1% lidocaine solution was administered and patient was observed for two minutes for signs or symptoms of complications, including abdominal pain, shortness of breath, bilateral upper or lower extremity weakness, nausea and vomiting, prior to steroid injection. At this point, a total of 3cc or 20mg of dexamethasone and 6mg of betamethasone was injected without incident. The procedure tolerated the procedure well without signs or symptoms of complications prior to transfer to the recovery area continued monitoring without incident. The patient was then transferred to the recovery area where they were observed for an appropriate time after the injection. The patient reported a VAS score of 8 prior to the procedure and a post-procedure VAS of 0. POST OP INSTRUCTIONS The patient was provided a Pain Log to continue to record their response to the target-specific procedure prior to follow-up visit with their referring physician. Additionally, specific post-injection care instructions and a contact number to our office were provided if concerns arise regarding possible complications associated with the procedure are suspected.
--- NOTE | 2019-11-01 15:57 | PC.NURSE ---
Fentanyl and versed given by this RN all other meds scanned given by Dr Parada. Patient was stable and transfered to [facility].
--- NOTE | 2019-11-01 16:18 | PC.NURSE ---
pt arrived to pre proc room via wc, 1PA from wc to chair, monitoring resumed per protocol
== END 2019-11-01 16:16 | disposition home or self-care (01) ==
LOC: RAD 13:58
PROVIDERS: Family Provider Family Medicine; PCP Family Medicine; Referring Provider Family Medicine; Visit Provider Physical Medicine & Rehabilitation
DX: M48.07 Spinal stenosis, lumbosacral region (principal); M51.17 Intervertebral disc disorders with radiculopathy, lumbosacral region
CPT/HCPCS: 64483; 99152; J0702; J1100; J2250; J3010

== ENCOUNTER → 2019-12-31 10:09 | Outpatient (CLI) | payer OTHER, MEDICAID, SELFPAY ==
--- NOTE | 2019-12-31 10:10 | DI.RAD.S_ITS ---
PROCEDURE: XR LUMBAR SPINE MIN 4V INDICATIONS: BACK PAIN TECHNIQUE: 5 views of the lumbar spine were acquired. COMPARISON: Outside Facility, [facility], XR L-SPINE 4-6V, 06/13/2018, 11:47. FINDINGS: Bones: 5 nonrib-bearing vertebrae are present. There is normal bony alignment. No vertebral body compression fractures. No suspicious bony lesions. There is degenerative disc disease, severe at L5-S1, [id number] at L2-L3, L3-L4 and L4-L5. Moderate to severe facet arthropathy at L4-L5 and L5-S1. Soft tissues: Overlying bowel gas pattern is normal. Suspect gallstones. Oblique images: No pars defects. IMPRESSION: 1. Multilevel degenerative disc and facet disease as described. 2. Suspect gallstones. Dictated by: Stone Cfofey M.D. on 12/31/2019 at 11:43 Approved by: Stone Coffey M.D. on 12/31/2019 at 11:47
== END ==
PROVIDERS: Family Provider Family Medicine; PCP Family Medicine; Referring Provider Family Medicine; Visit Provider Physical Medicine & Rehabilitation
DX: M47.27 Other spondylosis with radiculopathy, lumbosacral region (principal); M47.26 Other spondylosis with radiculopathy, lumbar region; M51.16 Intervertebral disc disorders with radiculopathy, lumbar region; M51.17 Intervertebral disc disorders with radiculopathy, lumbosacral region; M19.011 Primary osteoarthritis, right shoulder; M19.012 Primary osteoarthritis, left shoulder; M75.42 Impingement syndrome of left shoulder; Z98.890 Other specified postprocedural states; Z86.79 Personal history of other diseases of the circulatory system
CPT/HCPCS: 20611; 72110; 99213; J0702

== ENCOUNTER → 2020-01-12 13:39 | Outpatient (CLI) | payer OTHER, MEDICAID, SELFPAY ==
[2020-01-14 01:57] LABS: COVID19 Sendout Not Detected (Not Detect)
== END ==
PROVIDERS: Family Provider Family Medicine; PCP Family Medicine; Visit Provider Student in an Organized Health Care Education/Training Program
DX: Z11.59 Encounter for screening for other viral diseases (principal)
CPT/HCPCS: 87635

== ENCOUNTER 2020-01-15 10:16 | Outpatient (CLI) | payer OTHER, MEDICAID, SELFPAY ==
[2020-01-15] VITALS (9 sets, daily range): BP systolic 124–150; BP diastolic 36–73; PULSE 71–90; RESP 10–20; O2SAT 99–100
--- NOTE | 2020-01-15 10:19 | DI.RAD.S_ITS ---
PROCEDURE: PAIN L/S TRANSFORAMINAL INJECT INDICATIONS: SPONDYLOSIS COMPARISON: [facility], , PAIN L/S TRANSFORAMINAL INJECT, 11/01/2019, 14:26. FINDINGS: Fluoroscopic spot filming was performed to verify placement of spinal needles at the left L5-S1 level(s), as labeled on the films. Appropriate location(s) of the needle tip(s) was confirmed by injection of iodinated contrast. IMPRESSION: Successful left L5-S1 needle tip localization for transforaminal epidural steroid injection. Dictated by: Jose C Lowry M.D. on 01/15/2020 at 11:48 Approved by: Jose C Lowry M.D. on 01/15/2020 at 11:49
[2020-01-15] MEDS: fentaNYL 100 MCG/2 ML INJ 50 MCG IV (11:09)
[2020-01-15] MEDS: MIDAZOLAM 5 MG/5 ML VIAL IV (11:09)
[2020-01-15] MEDS: BETAMETHASONE 30 MG/5 ML MDV 6 MG INJ (11:12)
[2020-01-15] MEDS: BUPIVACAINE 0.25% (PF) VIAL 2 ML INJ (11:12)
[2020-01-15] MEDS: IOPAMIDOL 15 ML VIAL 3 ML INJ (11:12)
[2020-01-15] MEDS: DEXAMETHASONE 10 MG/ML VIAL 20 MG INJ (11:13)
--- NOTE | 2020-01-15 11:27 | P.PCN_ITS ---
Date/Time/Diagnoses Date of procedure: 01/15/20 Time of procedure: : Pre-procedure diagnosis: 1. FORAMINAL STENOSIS WITH LE SYMPTOMS Post-procedure diagnosis: same Procedure Notes Procedure: 1. FLUOROSCOPICALLY GUIDED CONTRAST CONTROLLED TRANSFORAMINAL EPIDURAL STEROID INJECTION - Left L5/S1 Indications: Daija is referred by Dr. Leyva for treatment of Foraminal Stenosis with Left LE Symptoms Physician: Luis Parada Total Fluoroscopy time (seconds): 11 Total sedation minutes: 11 Complications: none Procedure in detail & Post-procedure care: FINDINGS Foraminal Nerve Root Compression secondary to disc disease and facet hypertrophy DESCRIPTION OF PROCEDURE Following review of allergy and review of potential side effects and complications, including, but not necessarily limited to, infection, allergic reaction, local tissue breakdown, stroke, temporary or permanent nerve injury, paralysis, and possible , the patient indicated that the patient understood and agreed to proceed. An informed consent document was signed by the patient, witnessed by a nurse, and placed in the patient's chart. Additionally, other treatment options including medications, modalities, and physical therapy were reviewed with the patient. After review of previous anaesthesic history and IV conscious sedation the patient was deemed safe to proceed with today?s procedure with IV conscious sedation as ASA class II designation. Safety time-out was performed to confirm patient ID, procedure to be performed and site of procedure. IV sedation was accomplished with a combination of 2mg of Versed and 50mcg of Fentanyl was administered by the RN after DO order, titrated to patient comfort during the course of the procedure while the patient remained responsive to all verbal com mands In the prone position following sterile prep and drape of the lumbar region, the Left L5/S1 posterior neuroforamen was identified fluoroscopically. The skin was anesthetized via a 25-gauge 1.5-inch needle with 1% lidocaine solution. At this point, a 25-gauge 3.5-inch spinal needle was atraumatically introduced and advanced under fluoroscopic guidance through the posterior Left L5/S1 ne uroforamen to approximately the anterior aspect of the canal. Depth was confirmed on lateral view. Following negative aspiration, injection of approximately 1.5 cc of Isovue 200 under live fluoroscopy in the AP view confirmed excellent flow along the nerve root, into the epidural space without vascular or intrathecal uptake observed Radiological data, including multiple fluoroscopic views of the lumbosacral spine, reveal a spinal needle at the Left L5/S1 posterior neuroforamen. Subsequent views show flow of contrast material flowing superiorly and inferiorly along the nerve root confirming epidural flow. Subsequently, a test dose of 1.5 cc of 1% lidocaine solution was administered and patient was observed for two minutes for signs or symptoms of complications, including abdominal pain, shortness of breath, bilateral upper or lower extremity weakness, nausea and vomiting, prior to steroid injection. At this point, a total of 3cc or 20mg of dexamethasone and 6mg of betamethasone was injected without incident. The procedure tolerated the procedure well without signs or symptoms of complications prior to transfer to the recovery area continued monitoring without incident. The patient was then transferred to the recovery area where they were observed for an appropriate time after the injection. The patient reported a VAS score of 7 prior to the procedure and a post-procedure VAS of 0. POST OP INSTRUCTIONS The patient was provided a Pain Log to continue to record their response to the target-specific procedure prior to follow-up visit with their referring physician. Additionally, specific post-injection care instructions and a contact number to our office were provided if concerns arise regarding possible complications associated with the procedure are suspected.
== END 2020-01-15 11:45 | disposition home or self-care (01) ==
PROVIDERS: Family Provider Family Medicine; PCP Family Medicine; Referring Provider Physical Medicine & Rehabilitation; Visit Provider Physical Medicine & Rehabilitation
DX: M48.07 Spinal stenosis, lumbosacral region (principal); M51.17 Intervertebral disc disorders with radiculopathy, lumbosacral region
CPT/HCPCS: 64483; 99152; J0702; J1100; J2250; J3010

== ENCOUNTER → 2020-05-09 12:40 | Outpatient (CLI) | payer OTHER, MEDICAID, SELFPAY ==
--- NOTE | 2020-05-09 12:41 | DI.MRI.S_ITS ---
PROCEDURE: MR CERVICAL SPINE WO CON INDICATIONS: Bilateral arm paresthesias TECHNIQUE: Noncontrast sagittal T1 spin echo and T2 fast spin echo, sagittal STIR, foraminal oblique sagittal T2 fast spin echo, and axial gradient echo or T2 fast spin echo through the cervical spine. COMPARISON: None. FINDINGS: Image quality: Excellent. Alignment and Curvature: There is loss of normal cervical lordosis. Mild kyphosis at C2-C5. Bone Marrow: Marrow demonstrates normal overall signal. Mild reactive signal within the endplates adjacent to the C3-C4, C4-C5, and C5-C6 intervertebral discs. Spinal Cord: Visualized spinal cord has normal size and signal. No cerebellar tonsillar herniation. Paraspinous Soft Tissues: No paravertebral masses. Prevertebral soft tissues are normal in thickness. C2-C3: Moderate disc height loss and desiccation. Mild canal stenosis. No foraminal stenosis. C3-C4: Mild disc height loss. Moderate disc desiccation. Mild diffuse disc bulge with superimposed small central protrusion/annular tear. Mild facet and uncovertebral hypertrophy bilaterally. Mild canal stenosis. Mild left greater than right foraminal stenosis. C4-C5: Moderate disc desiccation. Mild diffuse disc bulge with superimposed small central protrusion. Mild facet and uncovertebral hypertrophy bilaterally. Moderate to severe canal stenosis. Minimal anterior cord flattening. Moderate left and [id number] right foraminal stenosis. C5-C6: Moderate disc desiccation. Mild diffuse disc bulge. Mild facet and uncovertebral hypertrophy bilaterally. Mild canal stenosis. Mild bilateral foraminal stenosis. C6-C7: Moderate disc desiccation. Mild diffuse disc bulge. Mild facet and uncovertebral hypertrophy. Mild canal stenosis. Mild left foraminal stenosis. No right foraminal stenosis. C7-T1: Mild disc desiccation and diffuse disc bulge. Mild facet and uncovertebral hypertrophy bilaterally. Mild canal stenosis. Mild bilateral foraminal stenosis. IMPRESSION: 1. Multilevel degenerative disc and facet disease, as well as uncovertebral hypertrophy. 2. Multilevel canal stenoses, worst at C4-C5 where there is minimal cord flattening. 3. Multilevel foraminal stenosis, worst at C4-C5 where there is moderate foraminal stenosis as described above. Dictated by: Danni Gonzalez M.D. on 05/09/2020 at 13:19 Approved by: Danni Gonzalez M.D. on 05/09/2020 at 13:22
== END ==
PROVIDERS: Family Provider Family Medicine; PCP Family Medicine; Referring Provider Physical Medicine & Rehabilitation; Visit Provider Physical Medicine & Rehabilitation
DX: M50.11 Cervical disc disorder with radiculopathy, high cervical region (principal); M48.02 Spinal stenosis, cervical region
CPT/HCPCS: 72141

== ENCOUNTER → 2020-05-27 13:04 | Outpatient (CLI) | payer OTHER, MEDICAID, SELFPAY ==
[2020-05-27 14:43] LABS: COVID19 -Nasal RAPID Negative (Negative)
== END ==
PROVIDERS: Family Provider Family Medicine; PCP Family Medicine; Visit Provider Physical Medicine & Rehabilitation
DX: Z20.822 Contact with and (suspected) exposure to COVID-19 (principal)
CPT/HCPCS: 87635; C9803

== ENCOUNTER 2020-05-29 08:53 | Outpatient (CLI) | payer OTHER, MEDICAID, SELFPAY ==
[2020-05-29] VITALS (9 sets, daily range): BP systolic 100–142; BP diastolic 51–70; PULSE 78–92; RESP 15–18; TEMP 36.3; O2SAT 96–100
--- NOTE | 2020-05-29 08:53 | DI.RAD.S_ITS ---
PROCEDURE: PAIN C/T INTERLAMINAR INJECT INDICATIONS: SPINAL STENOSIS COMPARISON: None. FINDINGS: Fluoroscopic spot filming was performed to verify placement of spinal needles at the right C6-7 level(s), as labeled on the films. Appropriate location(s) of the needle tip(s) was confirmed by injection of iodinated contrast. IMPRESSION: Fluoroscopic guided right C6-7 interlaminar injection. Please see procedural note for further details. Dictated by: Stephane May M.D. on 05/29/2020 at 12:19 Approved by: Stephane May M.D. on 05/29/2020 at 12:20
[2020-05-29] MEDS: MIDAZOLAM 5 MG/5 ML VIAL IV (09:54)
[2020-05-29] MEDS: fentaNYL 100 MCG/2 ML INJ 50 MCG IV (09:54)
[2020-05-29] MEDS: BUPIVACAINE 0.25% (PF) VIAL 2 ML INJ (09:57)
[2020-05-29] MEDS: DEXAMETHASONE 10 MG/ML VIAL 30 MG INJ (09:57)
[2020-05-29] MEDS: IOPAMIDOL 15 ML VIAL 3 ML INJ (09:58)
--- NOTE | 2020-05-29 10:04 | P.PCN_ITS ---
Date/Time/Diagnoses Date of procedure: 05/29/20 Time of procedure: 10:04 Pre-procedure diagnosis: 1. CERVICAL STENOSIS, 2. CERVICAL HNP WITH UPPER EXTREMITY RADICULAR FEATURES Post-procedure diagnosis: same Procedure Notes Procedure: 1. FLUORSCOPICALLY GUIDED CONTRAST CONTROLLED INTERLAMINAR EPIDURAL STEROID INJECTION - C6/7 TL KARO Indications: Daija is referred by Dr. Leyva for treatment of Cervical HNP with Upper Extremity Paresthesias. Physician: Luis Parada Total Fluoroscopy time (seconds): 20 Total sedation minutes: 13 Complications: none Procedure in detail & Post-procedure care: FINDINGS Cervical Stenosis due to disc deterioration and nerve root irritation and nerve root irritation DESCRIPTION OF PROCEDURE Fluoroscopically guided, contrast-controlled C6/7 translaminar epidural steroid injection with conscious sedation. Following review of allergy and review of potential side effects and complications, including, but not necessarily limited to, infection, allergic reaction, local tissue breakdown, temporary as well as permanent nerve injury, stroke, paralysis, and possible , the patient indicated that patient understood and agreed to proceed. An informed consent document was signed by the patient, witnessed by a nurse, and placed in the patient's chart. Additionally, other treatment options including modalities, medications, and physical therapy were reviewed with the patient. After review of previous anaesthesic history and IV conscious sedation the patient was deemed safe to proceed with today?s procedure with IV conscious fortunato tion as ASA class II designation. Safety time-out was performed to confirm patient ID, procedure to be performed and site of procedure. IV sedation was accomplished with a combination of 3mg of Versed and 50mcg of Fentanyl administered by the RN after DO order, titrated to patient comfort during the course of the procedure while the patient remained responsive to all verbal commands. In the prone position, following sterile prep and drape of the cervical region, the C6/7 translaminar space was identified fluoroscopically. The skin was anesthetized via a 25-gauge 1.5-inch needle with 1% lidocaine solution. At this point, a 25-gauge, 2.5-inch short bevel spinal needle was atraumatically introduced and advanced under fluoroscopic guidance into epidural space at the C6/7 translaminar space. Depth was confirmed on lateral view. Radiological data, including multiple fluoroscopic views of the cervical spine, reveal a spinal needle at the C6/7 translaminar space. Lateral views then show placement of the needle in the epidural space. Subsequent views show contrast material flowing superiorly and inferiorly in the epidural space. DSA fluoroscopy with live contrast injection, once again, confirmed no vascular or intrathecal uptake. At this point, using loss of resistance technique with saline and air, the epidural space was entered. Following negative aspiration, injection of approximately 1.5 cc of Isovue-200 with live fluoroscopy in the AP view confirmed epidural flow in the epidural space without vascular or intrathecal uptake observed. Subsequently, a test dose of 1 cc of 1% lidocaine solution was injected and patient was observed for two minutes without signs or symptoms of complications, including abdominal pain, shortness of breath, bilateral upper or lower extremity weakness, nausea and vomiting, prior to steroid injection. At this point, 3cc or 30mg of dexamethasone was then injected without incident. The patient tolerated the procedure well without signs or symptoms of complications prior to being transferred to the recovery area for further monitoring, The patient was then transferred to the recovery area where they were observed for an appropriate period of time after the injection. The patient reported a VAS score of 6 prior to the procedure and a post-procedure VAS of 0. POST OP INSTRUCTIONS The patient was provided a Pain Log to continue to record their response to the target-specific procedure prior to follow-up visit with the referring provider. Additionally, specific post-injection care instructions and a contact number to our office were provided if concerns arise regarding possible complications associated with the procedure are suspected.
== END 2020-05-29 10:40 | disposition home or self-care (01) ==
LOC: RAD 08:53
PROVIDERS: Family Provider Family Medicine; PCP Family Medicine; Referring Provider Physical Medicine & Rehabilitation; Visit Provider Physical Medicine & Rehabilitation
DX: M48.02 Spinal stenosis, cervical region (principal); M50.123 Cervical disc disorder at C6-C7 level with radiculopathy
CPT/HCPCS: 62321; 99152; J1100; J2250; J3010

== ENCOUNTER → 2020-09-23 13:16 | Outpatient (CLI) | payer OTHER, MEDICAID, SELFPAY ==
--- NOTE | 2020-09-23 13:17 | DI.MRI.S_ITS ---
PROCEDURE: MR LUMBAR SPINE WO CON INDICATIONS: BILATERAL L5 RADICULOPATHY TECHNIQUE: Noncontrast sagittal T1 spin echo and T2 fast echo, sagittal STIR, axial T1 and T2 fast spin echo through the lumbar spine. In cases with scoliosis, additional coronal T2 fast spin echo may be performed. COMPARISON: None. FINDINGS: Image quality: Excellent. Alignment and Curvature: Mild levoscoliosis centered at L3. No listhesis. Vertebral body heights maintained. Bone Marrow: No suspicious focal marrow signal abnormality or bone marrow edema. Discogenic degenerative signal changes at the opposing L5-S1 endplates. Spinal Cord: Normal position and appearance of the conus. Regional Soft Tissues: Prevertebral and paraspinous soft tissues are normal. T12-L1: No spinal canal or neural foraminal stenosis. L1-L2: No spinal canal or neural foraminal stenosis. L2-L3: Disc desiccation and disc height loss with diffuse disc bulge. No mass effect upon the traversing L3 nerve roots. Mild bilateral neural foraminal narrowing due to foraminal components of the disc bulge. L3-L4: Disc desiccation and disc height loss with diffuse disc bulge which flattens the ventral thecal sac but produces no significant mass effect upon the traversing L4 nerve roots. Foraminal components of the disc bulge contribute to mild neural foraminal narrowing bilaterally in conjunction with facet hypertrophy. L4-L5: Diffuse disc bulge and a superimposed broad-based posterior disc protrusion with displacement of the descending L5 nerve roots. The descending L5 nerve roots are interposed between disc and facet material within both subarticular zones (series 6, image 11). Foraminal components of the disc bulge contribute to moderate neural foraminal narrowing bilaterally, in conjunction with facet hypertrophy. L5-S1: Diffuse disc bulge with a superimposed broad-based posterior disc protrusion. Disc material displaces the descending S1 nerve roots within both subarticular zones. Foraminal components of the disc bulge and facet hypertrophy combine with neural foraminal height loss to produce severe bilateral neural foraminal stenosis. There is flattening of the bilateral exiting L5 nerve roots. IMPRESSION: Multilevel multifactorial degenerative changes, worst at L5-S1 where there is severe bilateral neural foraminal narrowing producing flattening of the bilateral exiting L5 nerve roots. Correlate for any corresponding L5 radicular symptoms. Less pronounced degenerative changes at the remaining levels as described above, though with potential for focal nerve root impingement. Correlate for any corresponding radicular symptoms. Dictated by: Dong Finn M.D. on 09/23/2020 at 15:41 Approved by: Dong Finn M.D. on 09/23/2020 at 15:46
== END ==
PROVIDERS: Family Provider Family Medicine; PCP Family Medicine; Referring Provider Physical Medicine & Rehabilitation; Visit Provider Physical Medicine & Rehabilitation
DX: M47.27 Other spondylosis with radiculopathy, lumbosacral region (principal); M47.26 Other spondylosis with radiculopathy, lumbar region; M48.07 Spinal stenosis, lumbosacral region
CPT/HCPCS: 72148

== ENCOUNTER 2020-10-09 14:52 | Outpatient (CLI) | payer OTHER, MEDICAID, SELFPAY ==
[2020-10-09] VITALS (8 sets, daily range): BP systolic 131–150; BP diastolic 61–70; PULSE 74–84; RESP 12–20; TEMP 37.2; O2SAT 97–100
--- NOTE | 2020-10-09 14:54 | DI.RAD.S_ITS ---
PROCEDURE: PAIN L/S TRANSFORAM INJECT ELIAS COMPARISON: [facility], XA, PAIN C/T INTERLAMINAR INJECT, 05/29/2020, 9:55. [facility], MR, MR LUMBAR SPINE WO CON, 09/23/2020, 13:36. INDICATIONS: SPONDYLOSIS FINDINGS: Fluoroscopic spot filming was performed to verify placement of a spinal needles on both sides at the L5-S1 level, as labeled on the films. Appropriate location of the needle tips was confirmed by injection of iodinated contrast. IMPRESSION: No significant intraprocedural abnormality. Dictated by: Clarke Barrientos M.D. on 10/09/2020 at 15:53 Approved by: Clarke Barrientos M.D. on 10/09/2020 at 15:54
[2020-10-09] MEDS: fentaNYL 100 MCG/2 ML INJ 50 MCG IV (15:35)
[2020-10-09] MEDS: MIDAZOLAM 5 MG/5 ML VIAL IV (15:35)
[2020-10-09] MEDS: DEXAMETHASONE 10 MG/ML VIAL 20 MG INJ (15:46)
[2020-10-09] MEDS: BETAMETHASONE 30 MG/5 ML MDV 12 MG INJ (15:46)
[2020-10-09] MEDS: BUPIVACAINE 0.25% (PF) VIAL 2 ML INJ (15:47)
[2020-10-09] MEDS: IOPAMIDOL 15 ML VIAL 3 ML INJ (15:47)
--- NOTE | 2020-10-09 15:56 | P.PCN_ITS ---
Date/Time/Diagnoses Date of procedure: 10/09/20 Time of procedure: 15:56 Pre-procedure diagnosis: 1. FORAMINAL STENOSIS WITH LE SYMPTOMS Post-procedure diagnosis: same Procedure Notes Procedure: 1. FLUOROSCOPICALLY GUIDED CONTRAST CONTROLLED TRANSFORAMINAL EPIDURAL STEROID INJECTION - BILATERAL L5/S1 TFESI Indications: Daija is referred by Dr. Leyva for treatment of Foraminal Stenosis with bilateral LE Symptoms Physician: Luis Parada Total Fluoroscopy time (seconds): 20 Total sedation minutes: 17 Complications: none Procedure in detail & Post-procedure care: FINDINGS Foraminal Nerve Root Compression secondary to disc disease and facet hypertrophy DESCRIPTION OF PROCEDURE Following review of allergy and review of potential side effects and complications, including, but not necessarily limited to, infection, allergic reaction, local tissue breakdown, stroke, temporary or permanent nerve injury, paralysis, and possible , the patient indicated that the patient understood and agreed to proceed. An informed consent document was signed by the patient, witnessed by a nurse, and placed in the patient's chart. Additionally, other treatment options including medications, modalities, and physical therapy were reviewed with the patient. After review of previous anaesthesic history and IV conscious sedation the patient was deemed safe to proceed with today?s procedure with IV conscious sedation as ASA class II designation. Safety time-out was performed to confirm patient ID, procedure to be performed and site of procedure. IV sedation was accomplished with a combination of 3mg of Versed and 50mcg of Fentanyl was administered by the RN after DO order, titrated to patient comfort during the course of the procedure while the patient remained responsive to all verbal commands In the prone position following sterile prep and drape of the lumbar region, the right L5/S1 posterior neuroforamen was identified fluoroscopically. The skin was anesthetized via a 25-gauge 1.5-inch needle with 1% lidocaine solution. At this point, a 25-gauge 3.5-inch spinal needle was atraumatically introduced and advanced under fluoroscopic guidance through the posterior right L5/S1 neuroforamen to approximately the anterior aspect of the canal. Depth was confirmed on lateral view. Following negative aspiration, injection of approximately 1.5cc of Isovue 200 under live fluoroscopy in the AP view confir med excellent flow along the nerve root, into the epidural space without vascular or intrathecal uptake observed Radiological data, including multiple fluoroscopic views of the lumbosacral spine, reveal a spinal needle at the right L5/S1 posterior neuroforamen. Subsequent views show flow of contrast material flowing superiorly and inferiorly along the nerve root confirming epidural flow. Subsequently, a test dose of 1.5cc of 1% lidocaine solution was administered and patient was observed for two minutes for signs or symptoms of complications, including abdominal pain, shortness of breath, bilateral upper or lower extremity weakness, nausea and vomiting, prior to steroid injection. At this point, a total of 3cc or 20mg of dexamethasone and 6mg betamethasone was injected without incident. Attention was then refocused to the left L5/S1 level where the identical procedure was replicated. The procedure tolerated the procedure well without signs or symptoms of complications prior to transfer to the recovery area continued monitoring without incident. The patient was then transferred to the recovery area where they were observed for an appropriate time after the injection. The patient reported a VAS score of 7 prior to the procedure and a post-procedure VAS of 0. POST OP INSTRUCTIONS The patient was provided a Pain Log to continue to record their response to the target-specific procedure prior to follow-up visit with their referring physician. Additionally, specific post-injection care instructions and a contact number to our office were provided if concerns arise regarding possible complications associated with the procedure are suspected.
== END 2020-10-09 16:18 | disposition home or self-care (01) ==
LOC: RAD 14:53
PROVIDERS: Family Provider Family Medicine; PCP Family Medicine; Referring Provider Physical Medicine & Rehabilitation; Visit Provider Physical Medicine & Rehabilitation
DX: M48.07 Spinal stenosis, lumbosacral region (principal); M51.17 Intervertebral disc disorders with radiculopathy, lumbosacral region
CPT/HCPCS: 64483; 99152; J0702; J1100; J2250; J3010

== ENCOUNTER 2021-01-15 08:58 | Outpatient (CLI) | payer OTHER, MEDICAID, SELFPAY ==
[2021-01-15] VITALS (8 sets, daily range): BP systolic 118–145; BP diastolic 55–76; PULSE 83–97; RESP 15–20; TEMP 37.1; O2SAT 93–98
--- NOTE | 2021-01-15 08:59 | DI.RAD.S_ITS ---
PROCEDURE: PAIN C/T INTERLAMINAR INJECT INDICATIONS: SPINAL STENOSIS COMPARISON: [facility], , PAIN C/T INTERLAMINAR INJECT, 05/29/2020, 9:55. FINDINGS: Fluoroscopic spot filming was performed to verify placement of spinal needles at the C6 C7 level(s), as labeled on the films. Appropriate location(s) of the needle tip(s) was confirmed by injection of iodinated contrast. Dictated by: Travon Lopes M.D. on 01/15/2021 at 11:46 Approved by: Travon Lopes M.D. on 01/15/2021 at 13:04
[2021-01-15] MEDS: MIDAZOLAM 5 MG/5 ML VIAL IV (10:01)
[2021-01-15] MEDS: fentaNYL 100 MCG/2 ML INJ 50 MCG IV (10:01)
[2021-01-15] MEDS: IOPAMIDOL 15 ML VIAL 3 ML INJ (10:07)
[2021-01-15] MEDS: BUPIVACAINE 0.25% (PF) VIAL 2 ML INJ (10:07)
[2021-01-15] MEDS: DEXAMETHASONE 10 MG/ML VIAL 30 MG INJ (10:08)
--- NOTE | 2021-01-15 10:18 | P.PCN_ITS ---
Date/Time/Diagnoses Date of procedure: 01/15/21 Time of procedure: 10:18 Pre-procedure diagnosis: 1. CERVICAL STENOSIS, 2. CERVICAL HNP WITH UPPER EXTREMITY RADICULAR FEATURES Post-procedure diagnosis: same Procedure Notes Procedure: 1. FLUORSCOPICALLY GUIDED CONTRAST CONTROLLED INTERLAMINAR EPIDURAL STEROID INJECTION - C6/7 TL KARO Indications: Daija is referred by Autumn for treatment of Cervical HNP with Upper Extremity Paresthesias. Physician: Luis Parada Total Fluoroscopy time (seconds): 21 Total sedation minutes: 11 Complications: none Procedure in detail & Post-procedure care: FINDINGS Cervical Stenosis due to disc deterioration and nerve root irritation and nerve root irritation DESCRIPTION OF PROCEDURE Fluoroscopically guided, contrast-controlled C6/7 translaminar epidural steroid injection with conscious sedation. Following review of allergy and review of potential side effects and complications, including, but not necessarily limited to, infection, allergic reaction, local tissue breakdown, temporary as well as permanent nerve injury, stroke, paralysis, and possible , the patient indicated that patient understood and agreed to proceed. An informed consent document was signed by the patient, witnessed by a nurse, and placed in the patient's chart. Additionally, other treatment options including modalities, medications, and physical therapy were reviewed with the patient. After review of previous anaesthesic history and IV conscious sedation the patient was deemed safe to proceed with today?s procedure with IV conscious sedation as ASA class II designation. Safety time-out was performed to confirm patient ID, procedure to be performed and site of procedure. IV sedation was accomplished with a combination of 3mg of Versed and 50mcg of Fentanyl administered by the RN after DO order, titrated to patient comfort during the course of the procedure while the patient remained responsive to all verbal commands. In the prone position, following sterile prep and drape of the cervical region, the C6/7 translaminar space was identified fluoroscopically. The skin was anesthetized via a 25-gauge 1.5-inch needle with 1% lidocaine solution. At this point, a 25-gauge, 2.5-inch short bevel spinal needle was atraumatically introduced and advanced under fluoroscopic guidance into epidural space at the C6/7 translaminar space. Depth was confirmed on lateral view. Radiological data, including multiple fluoroscopic views of the cervical spine, reveal a spinal needle at the C6/7 translaminar space. Lateral views then show placement of the needle in the epidural space. Subsequent views show contrast material flowing superiorly and inferiorly in the epidural space. DSA fluoroscopy with live contrast injection, once again, confirmed no vascular or intrathecal uptake. At this point, using loss of resistance technique with saline and air, the epidural space was entered. Following negative aspiration, injection of approx imately 1.5 cc of Isovue-200 with live fluoroscopy in the AP view confirmed epidural flow in the epidural space without vascular or intrathecal uptake observed. Subsequently, a test dose of 1 cc of 1% lidocaine solution was injected and patient was observed for two minutes without signs or symptoms of complications, including abdominal pain, shortness of breath, bilateral upper or lower extremity weakness, nausea and vomiting, prior to steroid injection. At this point, 3cc or 30mg of dexamethasone was then injected without incident. The patient tolerated the procedure well without signs or symptoms of complications prior to being transferred to the recovery area for further monitoring, The patient was then transferred to the recovery area where they were observed for an appropriate period of time after the injection. The patient reported a VAS score of 6 prior to the procedure and a post-procedure VAS of 0. POST OP INSTRUCTIONS The patient was provided a Pain Log to continue to record their response to the target-specific procedure prior to follow-up visit with the referring provider. Additionally, specific post-injection care instructions and a contact number to our office were provided if concerns arise regarding possible complications associated with the procedure are suspected.
== END 2021-01-15 10:33 | disposition home or self-care (01) ==
PROVIDERS: Family Provider Family Medicine; PCP Family Medicine; Referring Provider Physical Medicine & Rehabilitation; Visit Provider Physical Medicine & Rehabilitation
DX: M48.02 Spinal stenosis, cervical region (principal); M50.123 Cervical disc disorder at C6-C7 level with radiculopathy
CPT/HCPCS: 62321; 99152; J1100; J2250; J3010

== ENCOUNTER → 2021-05-11 11:19 | Outpatient (CLI) | payer OTHER, MEDICAID, SELFPAY ==
[2021-05-11 12:38] LABS: COVID19 -Nasal RAPID Negative (Negative)
== END ==
PROVIDERS: Family Provider Family Medicine; PCP Family Medicine; Visit Provider Physical Medicine & Rehabilitation
DX: Z20.822 Contact with and (suspected) exposure to COVID-19 (principal)
CPT/HCPCS: 87635; C9803

== ENCOUNTER 2021-05-12 08:33 | Outpatient (CLI) | payer OTHER, MEDICAID, SELFPAY ==
[2021-05-12] VITALS (8 sets, daily range): BP systolic 111–161; BP diastolic 55–79; PULSE 83–90; RESP 13–18; TEMP 36.6; O2SAT 94–99
--- NOTE | 2021-05-12 08:34 | DI.RAD.S_ITS ---
PROCEDURE: PAIN C/T INTERLAMINAR INJECT INDICATIONS: SPINAL STENOSIS COMPARISON: [facility], , PAIN C/T INTERLAMINAR INJECT, 01/15/2021, 10:05. FINDINGS: Fluoroscopic spot filming was performed to verify placement of a spinal needle at the C6-C7 level, as labeled on the films. Appropriate location of the needle tip was confirmed by injection of iodinated contrast. IMPRESSION: No significant intraprocedural abnormality. Dictated by: Clarke Barrientos M.D. on 05/12/2021 at 9:06 Approved by: Clarke Barrientos M.D. on 05/12/2021 at 9:06
[2021-05-12] MEDS: fentaNYL 250 MCG/5 ML INJ 50 MCG IV (09:15)
[2021-05-12] MEDS: MIDAZOLAM 5 MG/5 ML VIAL IV (09:15)
[2021-05-12] MEDS: IOPAMIDOL 15 ML VIAL 3 ML INJ (09:22)
[2021-05-12] MEDS: LIDOCAINE 2% INJ MDV 20 ML (09:22)
[2021-05-12] MEDS: DEXAMETHASONE 10 MG/ML VIAL 30 MG INJ (09:23)
--- NOTE | 2021-05-12 09:34 | P.PCN_ITS ---
Date/Time/Diagnoses Date of procedure: 05/12/21 Time of procedure: 09:34 Pre-procedure diagnosis: 1. CERVICAL STENOSIS, 2. CERVICAL HNP WITH UPPER EXTREMITY RADICULAR FEATURES Post-procedure diagnosis: same Procedure Notes Procedure: 1. FLUORSCOPICALLY GUIDED CONTRAST CONTROLLED INTERLAMINAR EPIDURAL STEROID INJECTION - C6/7 TL KARO Indications: Daija is referred by Dr. Leyva for treatment of Cervical HNP with Upper Extremity Paresthesias. Physician: Luis Parada Total Fluoroscopy time (seconds): 23 Total sedation minutes: 14 Complications: none Procedure in detail & Post-procedure care: FINDINGS Cervical Stenosis due to disc deterioration and nerve root irritation and nerve root irritation DESCRIPTION OF PROCEDURE Fluoroscopically guided, contrast-controlled C6/7 translaminar epidural steroid injection with conscious sedation. Following review of allergy and review of potential side effects and complications, including, but not necessarily limited to, infection, allergic reaction, local tissue breakdown, temporary as well as permanent nerve injury, stroke, paralysis, and possible , the patient indicated that patient understood and agreed to proceed. An informed consent document was signed by the patient, witnessed by a nurse, and placed in the patient's chart. Additionally, other treatment options including modalities, medications, and physical therapy were reviewed with the patient. After review of previous anaesthesic history and IV conscious sedation the patient was deemed safe to proceed with today?s procedure with IV conscious sed ation as ASA class II designation. Safety time-out was performed to confirm patient ID, procedure to be performed and site of procedure. IV sedation was accomplished with a combination of 3mg of Versed and 50mcg of Fentanyl administered by the RN after DO order, titrated to patient comfort during the course of the procedure while the patient remained responsive to all verbal commands. In the prone position, following sterile prep and drape of the cervical region, the C6/7 translaminar space was identified fluoroscopically. The skin was anesthetized via a 25-gauge 1.5-inch needle with 1% lidocaine solution. At this point, a 25-gauge, 2.5-inch short bevel spinal needle was atraumatically introduced and advanced under fluoroscopic guidance into epidural space at the C6/7 translaminar space. Depth was confirmed on lateral view. Radiological data, including multiple fluoroscopic views of the cervical spine, reveal a spinal needle at the C6/7 translaminar space. Lateral views then show placement of the needle in the epidural space. Subsequent views show contrast material flowing superiorly and inferiorly in the epidural space. DSA fluoroscopy with live contrast injection, once again, confirmed no vascular or intrathecal uptake. At this point, using loss of resistance technique with saline and air, the epidural space was entered. Following negative aspiration, injection of approximately 1.5 cc of Isovue-200 with live fluoroscopy in the AP view confirmed epidural flow in the epidural space without vascular or intrathecal uptake observed. Subsequently, a test dose of 1 cc of 1% lidocaine solution was injected and patient was observed for two minutes without signs or symptoms of complications, including abdominal pain, shortness of breath, bilateral upper or lower extremity weakness, nausea and vomiting, prior to steroid injection. At this point, 3cc or 30mg of dexamethasone was then injected without incident. The patient tolerated the procedure well without signs or symptoms of complications prior to being transferred to the recovery area for further monitoring, The patient was then transferred to the recovery area where they were observed for an appropriate period of time after the injection. The patient reported a VAS score of 6 prior to the procedure and a post-procedure VAS of 0. POST OP INSTRUCTIONS The patient was provided a Pain Log to continue to record their response to the target-specific procedure prior to follow-up visit with the referring provider. Additionally, specific post-injection care instructions and a contact number to our office were provided if concerns arise regarding possible complications associated with the procedure are suspected.
== END 2021-05-12 10:07 | disposition home or self-care (01) ==
PROVIDERS: Family Provider Family Medicine; PCP Family Medicine; Referring Provider Physical Medicine & Rehabilitation; Visit Provider Physical Medicine & Rehabilitation
DX: M48.02 Spinal stenosis, cervical region (principal); M50.123 Cervical disc disorder at C6-C7 level with radiculopathy
CPT/HCPCS: 62321; 99152; J1100; J2250; J3010

== ENCOUNTER → 2021-08-19 09:46 | Outpatient (CLI) | payer OTHER, MEDICAID, SELFPAY ==
--- NOTE | 2021-08-19 09:48 | DI.RAD.S_ITS ---
PROCEDURE: XR LUMBAR SPINE MIN 4V INDICATIONS: BACK PAIN TECHNIQUE: 5 views of the lumbar spine were acquired, including bilateral oblique views. COMPARISON: None. FINDINGS: Bones: 5 nonrib-bearing vertebrae are present. There is normal bony alignment. There is mild convex left curvature of the lumbar spine. No vertebral body compression fractures. No suspicious bony lesions. Severe L5-S1 degenerative disc changes. Mild L1-L2, L2-L3, L3-L4 and L4-L5 degenerative disc disease. Mild bilateral L3-L4, L4-L5 and L5-S1 facet arthropathy. Soft tissues: Overlying bowel gas pattern is normal. Multiple calcified gallstones. Oblique images: No pars defects. IMPRESSION: 1. Multilevel degenerative disc disease. 2. Multilevel facet arthropathy. 3. No fracture. No acute osseous lesion. If symptoms and/or clinical suspicion for pathology persists, evaluation with MRI should be considered for further assessment. Dictated by: Belinda Schwartz MD, PhD on 08/19/2021 at 11:23 Approved by: Belinda Schwartz MD, PhD on 08/19/2021 at 11:24
== END ==
PROVIDERS: Family Provider Family Medicine; PCP Family Medicine; Referring Provider Physical Medicine & Rehabilitation; Visit Provider Physical Medicine & Rehabilitation
DX: M47.27 Other spondylosis with radiculopathy, lumbosacral region (principal); M47.26 Other spondylosis with radiculopathy, lumbar region; M51.16 Intervertebral disc disorders with radiculopathy, lumbar region; M51.17 Intervertebral disc disorders with radiculopathy, lumbosacral region; M75.42 Impingement syndrome of left shoulder; J44.9 Chronic obstructive pulmonary disease, unspecified; M19.011 Primary osteoarthritis, right shoulder; M19.012 Primary osteoarthritis, left shoulder; Z98.890 Other specified postprocedural states; Z86.79 Personal history of other diseases of the circulatory system
CPT/HCPCS: 72110; 99214

== ENCOUNTER → 2021-09-14 09:41 | Outpatient (CLI) | payer OTHER, MEDICAID, SELFPAY ==
[2021-09-14 14:08] LABS: COVID19 -Nasal RAPID Negative (Negative)
== END ==
PROVIDERS: Family Provider Family Medicine; PCP Family Medicine; Visit Provider Physical Medicine & Rehabilitation
DX: Z20.822 Contact with and (suspected) exposure to COVID-19 (principal)
CPT/HCPCS: 87635; C9803

== ENCOUNTER 2021-09-15 09:23 | Outpatient (CLI) | payer OTHER, MEDICAID, SELFPAY ==
[2021-09-15] VITALS (9 sets, daily range): BP systolic 124–147; BP diastolic 69–75; PULSE 61–87; RESP 12–20; TEMP 36.3; O2SAT 97–100
--- NOTE | 2021-09-15 09:24 | DI.RAD.S_ITS ---
PROCEDURE: PAIN L/S TRANSFORAM INJECT ELIAS COMPARISON: None. INDICATIONS: SPONDYLOSIS FINDINGS: Access needle at the bilateral L5-S1 neural foramina. Injection of small amount of contrast material demonstrates the axis needle tips are in extra thecal location. IMPRESSION: Access needles at bilateral L5-S1 neural foramina for transforaminal epidural steroid injection Dictated by: Belinda Schwartz MD, PhD on 09/15/2021 at 11:30 Approved by: Belinda Schwartz MD, PhD on 09/15/2021 at 11:31
[2021-09-15] MEDS: MIDAZOLAM 2 MG/2 ML VIAL IV (10:49)
[2021-09-15] MEDS: IOPAMIDOL 15 ML VIAL 3 ML INJ (10:53)
[2021-09-15] MEDS: BETAMETHASONE 30 MG/5 ML MDV 12 MG INJ (10:53)
[2021-09-15] MEDS: BUPIVACAINE 0.25% (PF) VIAL 2 ML INJ (10:53)
[2021-09-15] MEDS: DEXAMETHASONE 10 MG/ML VIAL 20 MG INJ (10:54)
--- NOTE | 2021-09-15 11:12 | PM.PROC.IR.1 ---
Date/Time/Diagnoses Date of procedure: 09/15/21 Time of procedure: 11:12 Pre-procedure diagnosis: 1. FORAMINAL STENOSIS WITH LE SYMPTOMS Post-procedure diagnosis: same Procedure Notes Procedure: 1. FLUOROSCOPICALLY GUIDED CONTRAST CONTROLLED TRANSFORAMINAL EPIDURAL STEROID INJECTION - BILATERAL L5/S1 TFESI Indications: Daija is referred by Dr. Leyva for treatment of Foraminal Stenosis with bilateral LE Symptoms Physician: Luis Parada Total Fluoroscopy time (seconds): 17 Total sedation minutes: 24 Complications: none Procedure in detail & Post-procedure care: FINDINGS Foraminal Nerve Root Compression secondary to disc disease and facet hypertrophy DESCRIPTION OF PROCEDURE Following review of allergy and review of potential side effects and complications, including, but not necessarily limited to, infection, allergic reaction, local tissue breakdown, stroke, temporary or permanent nerve injury, paralysis, and possible , the patient indicated that the patient understood and agreed to proceed. An informed consent document was signed by the patient, witnessed by a nurse, and placed in the patient's chart. Additionally, other treatment options including medications, modalities, and physical therapy were reviewed with the patient. After review of previous anaesthesic history and IV conscious sedation the patient was deemed safe to proceed with today?s procedure with IV conscious sedation as ASA class II designation. Safety time-out was performed to confirm patient ID, procedure to be performed and site of procedure. IV sedation was accomplished with a combination of 2mg of Versed was administered by the RN after DO order, titrated to patient comfort during the course of the procedure while the patient remained responsive to all verbal commands In the prone position following sterile prep and drape of the lumbar region, the right L5/S1 posterior neuroforamen was identified fluoroscopically. The skin was anesthetized via a 25-gauge 1.5-inch needle with 1% lidocaine solution. At this point, a 25-gauge 3.5-inch spinal needle was atraumatically introduced and advanced under fluoroscopic guidance through the posterior right L5/S1 neuroforamen to approximately the anterior aspect of the canal. Depth was confirmed on lateral view. Following negative aspiration, injection of approximately 1.5cc of Isovue 200 under live fluoroscopy in the AP view confirmed excellent flow along the nerve root, into the epidural space without vascular or intrathecal uptake observed Radiological data, including multiple fluoroscopic views of the lumbosacral spine, reveal a spinal needle at the right L5/S1 posterior neuroforamen. Subsequent views show flow of contrast material flowing superiorly and inferiorly along the nerve root confirming epidural flow. Subsequently, a test dose of 1.5cc of 1% lidocaine solution was administered and patient was observed for two minutes for signs or symptoms of complications, including abdominal pain, shortness of breath, bilateral upper or lower extremity weakness, nausea and vomiting, prior to steroid injection. At this point, a total of 3cc or 20mg of dexamethasone and 6mg betamethasone was injected without incident. Attention was then refocused to the left L5/S1 level where the identical procedure was replicated. The procedure tolerated the procedure well without signs or symptoms of complications prior to transfer to the recovery area continued monitoring without incident. The patient was then transferred to the recovery area where they were observed for an appropriate time after the injection. The patient reported a VAS score of 7 prior to the procedure and a post-procedure VAS of 0. POST OP INSTRUCTIONS The patient was provided a Pain Log to continue to record their response to the target-specific procedure prior to follow-up visit with their referring physician. Additionally, specific post-injection care instructions and a contact number to our office were provided if concerns arise regarding possible complications associated with the procedure are suspected.
== END 2021-09-15 11:28 | disposition home or self-care (01) ==
LOC: RAD 09:23
PROVIDERS: Family Provider Family Medicine; PCP Family Medicine; Referring Provider Physical Medicine & Rehabilitation; Visit Provider Physical Medicine & Rehabilitation
DX: M48.07 Spinal stenosis, lumbosacral region (principal); M51.17 Intervertebral disc disorders with radiculopathy, lumbosacral region
CPT/HCPCS: 64483; 99152; 99153; J0702; J1100; J2250

== ENCOUNTER → 2023-07-20 11:19 | Outpatient (CLI) | payer OTHER, MEDICAID, SELFPAY ==
--- NOTE | 2023-07-20 11:21 | DI.RAD.S_ITS ---
PROCEDURE: XR CERVICAL SPINE 4V OR 5V INDICATIONS: Cervical stenosis TECHNIQUE: 5 views of the cervical spine acquired. COMPARISON: [facility], CR, XR CERVICAL SPINE 4V OR 5V, 03/22/2019, 11:14. FINDINGS: Bones: No fractures or dislocations to the T1 level. Oblique images demonstrate no discernible bony foraminal stenoses. Probable severe degenerative disc disease is noted at C4-C5 C5-C6 evidence by osteophytes, endplate sclerosis and disc space narrowing Soft tissues: No prevertebral soft tissue swelling. IMPRESSION: Probable severe degenerative disc disease at C4-C5 and C5-C6. MRI may further evaluate if indicated. Dictated by: Clarence Loza M.D. on 07/20/2023 at 15:04 Approved by: Clarence Loza M.D. on 07/20/2023 at 15:06
--- NOTE | 2023-07-20 11:21 | DI.RAD.S_ITS ---
PROCEDURE: XR SHOULDER LT MIN 2V INDICATIONS: Progressive shoulder impingement TECHNIQUE: 3 views of the shoulder were acquired. COMPARISON: [facility], CR, XR SHOULDER RT MIN 2V, 03/22/2019, 11:14. FINDINGS: Bones: No fractures or dislocations. No suspicious bony lesions. Visualized ribs appear intact. Soft tissues: No suspicious soft tissue calcifications. IMPRESSION: No acute bony abnormality. Dictated by: Clarence Loza M.D. on 07/20/2023 at 15:06 Approved by: Clarence Loza M.D. on 07/20/2023 at 15:11
--- NOTE | 2023-07-20 11:21 | DI.RAD.S_ITS ---
PROCEDURE: XR SHOULDER RT MIN 2V INDICATIONS: Progressive shoulder impingement TECHNIQUE: 3 views of the shoulder were acquired. COMPARISON: [facility], CR, XR SHOULDER RT MIN 2V, 03/22/2019, 11:14. FINDINGS: Bones: No fractures or dislocations. No suspicious bony lesions. Visualized ribs appear intact. Soft tissues: No suspicious soft tissue calcifications. IMPRESSION: No acute bony abnormality. Dictated by: Clarence Loza M.D. on 07/20/2023 at 15:11 Approved by: Clarence Loza M.D. on 07/20/2023 at 15:11
== END ==
PROVIDERS: Family Provider Family Medicine; PCP Family Medicine; Referring Provider Physical Medicine & Rehabilitation; Visit Provider Physical Medicine & Rehabilitation
DX: M54.12 Radiculopathy, cervical region (principal); M75.41 Impingement syndrome of right shoulder; M19.019 Primary osteoarthritis, unspecified shoulder; Z68.31 Body mass index [BMI] 31.0-31.9, adult; M51.27 Other intervertebral disc displacement, lumbosacral region; M75.42 Impingement syndrome of left shoulder; M19.011 Primary osteoarthritis, right shoulder; M19.012 Primary osteoarthritis, left shoulder; M47.817 Spondylosis without myelopathy or radiculopathy, lumbosacral region; M51.26 Other intervertebral disc displacement, lumbar region; M54.16 Radiculopathy, lumbar region
CPT/HCPCS: 20611; 72050; 73030; 99215; J0702

== ENCOUNTER 2023-07-28 07:30 | Outpatient (CLI) | payer OTHER, MEDICAID, SELFPAY ==
[2023-07-28] VITALS (11 sets, daily range): BP systolic 118–155; BP diastolic 62–80; PULSE 76–89; RESP 14–20; TEMP 36.4; O2SAT 96–100
--- NOTE | 2023-07-28 08:00 | DI.RAD.S_ITS ---
PROCEDURE: PAIN L/S TRANSFORAM INJECT ELIAS COMPARISON: [facility], XA, PAIN L/S TRANSFORAM INJECT ELIAS, 09/15/2021, 10:54. INDICATIONS: Bilateral L5-S1 transforaminal KARO FINDINGS: Access needles at the bilateral L5-S1 neural foramina. Injection of small volume of contrast material demonstrates positioning of the access needles is extrathecal. IMPRESSION: Bilateral L5-S1 neural foraminal axis needle placement for epidural steroid injection. Dictated by: Belinda Schwartz MD, PhD on 07/28/2023 at 9:13 Approved by: Belinda Schwartz MD, PhD on 07/28/2023 at 9:17
[2023-07-28] MEDS: MIDAZOLAM 2 MG/2 ML VIAL IV (08:15)
[2023-07-28] MEDS: BUPIVACAINE 0.25% (PF) VIAL 2 ML INJ (08:22)
[2023-07-28] MEDS: iopamidoL 15 ML VIAL 3 ML INJ (08:22)
[2023-07-28] MEDS: BETAMETHASONE 30 MG/5 ML MDV 12 MG INJ (08:23)
[2023-07-28] MEDS: DEXAMETHASONE 10 MG/ML VIAL 20 MG INJ (08:23)
[2023-07-28] MEDS: fentaNYL 100 MCG/2 ML INJ 50 MCG IV (08:28)
[2023-07-28] MEDS: DEXAMETHASONE 10 MG/ML VIAL INJ (08:36)
--- NOTE | 2023-07-28 08:44 | P.PCN_ITS ---
Date/Time/Diagnoses Date of procedure: 07/28/23 Time of procedure: 08:44 Pre-procedure diagnosis: 1. FORAMINAL STENOSIS WITH LE SYMPTOMS Post-procedure diagnosis: same Procedure Notes Procedure: 1. FLUOROSCOPICALLY GUIDED CONTRAST CONTROLLED TRANSFORAMINAL EPIDURAL STEROID INJECTION - BILATERAL L5/S1 TFESI Indications: Daija is referred by Dr. Leyva for treatment of Foraminal Stenosis with bilateral LE Symptoms Physician: Luis Parada Total Fluoroscopy time (seconds): 18 Total sedation minutes: 24 Complications: none Procedure in detail & Post-procedure care: FINDINGS Foraminal Nerve Root Compression secondary to disc disease and facet hypertrophy DESCRIPTION OF PROCEDURE Following review of allergy and review of potential side effects and complications, including, but not necessarily limited to, infection, allergic reaction, local tissue breakdown, stroke, temporary or permanent nerve injury, paralysis, and possible , the patient indicated that the patient understood and agreed to proceed. An informed consent document was signed by the patient, witnessed by a nurse, and placed in the patient's chart. Additionally, other treatment options including medications, modalities, and physical therapy were reviewed with the patient. After review of previous anaesthesic history and IV conscious sedation the patient was deemed safe to proceed with today?s procedure with IV conscious sedation as ASA class II designation. Safety time-out was performed to confirm patient ID, procedure to be performed and site of procedure. IV sedation was accomplished with a combination of 2mg of Versed and 50mcg of Fentanyl was administered by the RN after DO order, titrated to patient comfort during the course of the procedure while the patient remained responsive to all verbal commands In the prone position following sterile prep and drape of the lumbar region, the right L5/S1 posterior neuroforamen was identified fluoroscopically. The skin was anesthetized via a 25-gauge 1.5-inch needle with 1% lidocaine solution. At this point, a 25-gauge 3.5-inch spinal needle was atraumatically introduced and advanced under fluoroscopic guidance through the posterior right L5/S1 neuroforamen to approximately the anterior aspect of the canal. Depth was confirmed on lateral view. Following negative aspiration, injection of approximately 1.5cc of Isovue 200 under live fluoroscopy in the AP view con firmed excellent flow along the nerve root, into the epidural space without vascular or intrathecal uptake observed Radiological data, including multiple fluoroscopic views of the lumbosacral spine, reveal a spinal needle at the right L5/S1 posterior neuroforamen. Subsequent views show flow of contrast material flowing superiorly and inferiorly along the nerve root confirming epidural flow. Subsequently, a test dose of 1.5cc of 1% lidocaine solution was administered and patient was observed for two minutes for signs or symptoms of complications, including abdominal pain, shortness of breath, bilateral upper or lower extremity weakness, nausea and vomiting, prior to steroid injection. At this point, a total of 2cc or 10mg of dexamethasone and 6mg betamethasone was injected without incident. Attention was then refocused to the left L5/S1 level where the identical procedure was replicated. The procedure tolerated the procedure well without signs or symptoms of complications prior to transfer to the recovery area continued monitoring without incident. The patient was then transferred to the recovery area where they were observed for an appropriate time after the injection. The patient reported a VAS score of 7 prior to the procedure and a post-procedure VAS of 0. POST OP INSTRUCTIONS The patient was provided a Pain Log to continue to record their response to the target-specific procedure prior to follow-up visit with their referring physician. Additionally, specific post-injection care instructions and a contact number to our office were provided if concerns arise regarding possible complications associated with the procedure are suspected.
--- NOTE | 2023-07-28 09:49 | PC.NURSE ---
Numbness Patient having some leg weakness and numbness upon transferring from wheelchair to recovery chair. Patient remained in recovery until numbness receded. Upon standing and testing legs patient with strong stance and states no numbess and feels much better and normal. Patient discharged home with patient's daughter driving her home.
== END 2023-07-28 08:58 | disposition home or self-care (01) ==
PROVIDERS: Family Provider Family Medicine; PCP Family Medicine; Referring Provider Physical Medicine & Rehabilitation; Visit Provider Physical Medicine & Rehabilitation
DX: M48.07 Spinal stenosis, lumbosacral region (principal); M51.17 Intervertebral disc disorders with radiculopathy, lumbosacral region; M47.27 Other spondylosis with radiculopathy, lumbosacral region
CPT/HCPCS: 64483; 99152; 99153; J0702; J1100; J2250; J3010; J3490

== ENCOUNTER 2023-11-22 08:47 | Outpatient (CLI) | payer OTHER, MEDICAID, SELFPAY ==
[2023-11-22] VITALS (10 sets, daily range): BP systolic 126–141; BP diastolic 62–73; PULSE 81–87; RESP 16–21; TEMP 36.4; O2SAT 97–100
[2023-11-22] MEDS: MIDAZOLAM 2 MG/2 ML VIAL IV (09:26)
--- NOTE | 2023-11-22 09:28 | PC.NURSE ---
Patient appeared to be in a LBBB when ECG connected to the monitor. Patient unsure if she has been told that in the past by a medical provider. Dr. Parada notified immediately.
--- NOTE | 2023-11-22 09:30 | DI.RAD.S_ITS ---
PROCEDURE: PAIN C/T INTERLAMINAR INJECT INDICATIONS: C 6/7 TL KARO COMPARISON: [facility], , PAIN C/T INTERLAMINAR INJECT, 05/12/2021, 10:21. FINDINGS: Fluoroscopic spot filming was performed to verify placement of spinal needles at the C6-C7 level(s), as labeled on the films. Appropriate location(s) of the needle tip(s) was confirmed by injection of iodinated contrast. IMPRESSION: C6-C7 injection. Please see operative note for full details. Dictated by: Maurizio Hansen M.D. on 11/22/2023 at 12:18 Approved by: Maurizio Hansen M.D. on 11/22/2023 at 12:18
[2023-11-22] MEDS: iopamidoL 15 ML VIAL 3 ML INJ (09:32)
[2023-11-22] MEDS: DEXAMETHASONE 10 MG/ML VIAL 20 MG INJ (09:32)
[2023-11-22] MEDS: BUPIVACAINE 0.25% (PF) VIAL 2 ML INJ (09:32)
--- NOTE | 2023-11-22 09:51 | P.PCN_ITS ---
Date/Time/Diagnoses Date of procedure: 11/22/23 Time of procedure: 09:51 Pre-procedure diagnosis: 1. CERVICAL STENOSIS, 2. CERVICAL HNP WITH UPPER EXTREMITY RADICULAR FEATURES Post-procedure diagnosis: same Procedure Notes Procedure: 1. FLUORSCOPICALLY GUIDED CONTRAST CONTROLLED INTERLAMINAR EPIDURAL STEROID INJECTION - C6/7 TL KARO Indications: Daija is referred by Dr. Leyva for treatment of Cervical HNP with Upper Extremity Paresthesias. Physician: Luis Parada Total Fluoroscopy time (seconds): 27 Total sedation minutes: 13 Complications: none Procedure in detail & Post-procedure care: FINDINGS Cervical Stenosis due to disc deterioration and nerve root irritation and nerve root irritation DESCRIPTION OF PROCEDURE Fluoroscopically guided, contrast-controlled C6/7 translaminar epidural steroid injection with conscious sedation. Following review of allergy and review of potential side effects and complications, including, but not necessarily limited to, infection, allergic reaction, local tissue breakdown, temporary as well as permanent nerve injury, stroke, paralysis, and possible , the patient indicated that patient understood and agreed to proceed. An informed consent document was signed by the patient, witnessed by a nurse, and placed in the patient's chart. Additionally, other treatment options including modalities, medications, and physical therapy were reviewed with the patient. After review of previous anaesthesic history and IV conscious sedation the patient was deemed safe to proceed with today?s procedure with IV conscious sed ation as ASA class II designation. Safety time-out was performed to confirm patient ID, procedure to be performed and site of procedure. IV sedation was accomplished with a combination of 2mg of Versed administered by the RN after DO order, titrated to patient comfort during the course of the procedure while the patient remained responsive to all verbal commands. In the prone position, following sterile prep and drape of the cervical region, the C6/7 translaminar space was identified fluoroscopically. The skin was anesthetized via a 25-gauge 1.5-inch needle with 1% lidocaine solution. At this point, a 25-gauge, 2.5-inch short bevel spinal needle was atraumatically introduced and advanced under fluoroscopic guidance into epidural space at the C6/7 translaminar space. Depth was confirmed on lateral view. Radiological data, including multiple fluoroscopic views of the cervical spine, reveal a spinal needle at the C6/7 translaminar space. Lateral views then show placement of the needle in the epidural space. Subsequent views show contrast material flowing superiorly and inferiorly in the epidural space. DSA fluoroscopy with live contrast injection, once again, confirmed no vascular or intrathecal uptake. At this point, using loss of resistance technique with saline and air, the epidural space was entered. Following negative aspiration, injection of approximately 1.5 cc of Isovue-200 with live fluoroscopy in the AP view confirmed epidural flow in the epidural space without vascular or intrathecal uptake observed. Subsequently, a test dose of 1 cc of 1% lidocaine solution was injected and patient was observed for two minutes without signs or symptoms of complications, including abdominal pain, shortness of breath, bilateral upper or lower extremity weakness, nausea and vomiting, prior to steroid injection. At this point, 2cc or 20mg of dexamethasone was then injected without incident. The patient tolerated the procedure well without signs or symptoms of co mplications prior to being transferred to the recovery area for further monitoring, The patient was then transferred to the recovery area where they were observed for an appropriate period of time after the injection. The patient reported a VAS score of 6 prior to the procedure and a post-procedure VAS of 0. POST OP INSTRUCTIONS The patient was provided a Pain Log to continue to record their response to the target-specific procedure prior to follow-up visit with the referring provider. Additionally, specific post-injection care instructions and a contact number to our office were provided if concerns arise regarding possible complications associated with the procedure are suspected.
--- NOTE | 2023-11-22 10:26 | PC.NURSE ---
post injection- Pt c/o mild numbness/tingling from middle left palm down to tips of 3 lower fingers, also has some tingling sensation to right arm to touch, left hand net application architect strong, able to move all fingers with out pain, has full ROM to left shoulder. Denies any pain or discomfort and has better ROM then prior to injection. Dr Parada was notified states concentrated injection to that left side, may have that sensation for couple hours, ok to d/c home
== END 2023-11-22 10:20 | disposition home or self-care (01) ==
LOC: RAD 08:48
PROVIDERS: Family Provider Family Medicine; PCP Family Medicine; Referring Provider Physical Medicine & Rehabilitation; Visit Provider Physical Medicine & Rehabilitation
DX: M54.12 Radiculopathy, cervical region (principal); M48.03 Spinal stenosis, cervicothoracic region
CPT/HCPCS: 62321; 99152; J1100; J2250; J3490

== ENCOUNTER 2024-05-31 08:58 | Outpatient (CLI) | payer OTHER, SELFPAY ==
[2024-05-31] VITALS (9 sets, daily range): BP systolic 104–119; BP diastolic 55–70; PULSE 89–98; RESP 16–22; O2SAT 92–99
[2024-05-31] MEDS: MIDAZOLAM 2 MG/2 ML VIAL IV (10:13)
[2024-05-31] MEDS: iopamidoL 15 ML VIAL 3 ML INJ (10:17)
[2024-05-31] MEDS: BUPIVACAINE 0.25% (PF) VIAL 2 ML INJ (10:17)
[2024-05-31] MEDS: DEXAMETHASONE 10 MG/ML VIAL 20 MG INJ (10:18)
--- NOTE | 2024-05-31 10:34 | P.PCN_ITS ---
Date/Time/Diagnoses Date of procedure: 05/31/24 Time of procedure: 10:34 Pre-procedure diagnosis: 1. CERVICAL STENOSIS, 2. CERVICAL HNP WITH UPPER EXTREMITY RADICULAR FEATURES Post-procedure diagnosis: same Procedure Notes Procedure: 1. FLUORSCOPICALLY GUIDED CONTRAST CONTROLLED INTERLAMINAR EPIDURAL STEROID INJECTION - C6/7 TL KARO Indications: Daija is referred by Dr. Leyva for treatment of Cervical HNP with Upper Extremity Paresthesias. Physician: Luis Parada Total Fluoroscopy time (seconds): 26 Total sedation minutes: 16 Complications: none Procedure in detail & Post-procedure care: FINDINGS Cervical Stenosis due to disc deterioration and nerve root irritation and nerve root irritation DESCRIPTION OF PROCEDURE Fluoroscopically guided, contrast-controlled C6/7 translaminar epidural steroid injection with conscious sedation. Following review of allergy and review of potential side effects and complications, including, but not necessarily limited to, infection, allergic reaction, local tissue breakdown, temporary as well as permanent nerve injury, stroke, paralysis, and possible , the patient indicated that patient understood and agreed to proceed. An informed consent document was signed by the patient, witnessed by a nurse, and placed in the patient's chart. Additionally, other treatment options including modalities, medications, and physical therapy were reviewed with the patient. After review of previous anaesthesic history and IV conscious sedation the patient was deemed safe to proceed with today?s procedure with IV conscious sed ation as ASA class II designation. Safety time-out was performed to confirm patient ID, procedure to be performed and site of procedure. IV sedation was accomplished with a combination of 3mg of Versed administered by the RN after DO order, titrated to patient comfort during the course of the procedure while the patient remained responsive to all verbal commands. In the prone position, following sterile prep and drape of the cervical region, the C6/7 translaminar space was identified fluoroscopically. The skin was anesthetized via a 25-gauge 1.5-inch needle with 1% lidocaine solution. At this point, a 25-gauge, 2.5-inch short bevel spinal needle was atraumatically introduced and advanced under fluoroscopic guidance into epidural space at the C6/7 translaminar space. Depth was confirmed on lateral view. Radiological data, including multiple fluoroscopic views of the cervical spine, reveal a spinal needle at the C6/7 translaminar space. Lateral views then show placement of the needle in the epidural space. Subsequent views show contrast material flowing superiorly and inferiorly in the epidural space. DSA fluoroscopy with live contrast injection, once again, confirmed no vascular or intrathecal uptake. At this point, using loss of resistance technique with saline and air, the epidural space was entered. Following negative aspiration, injection of approximately 1.5 cc of Isovue-200 with live fluoroscopy in the AP view confirmed epidural flow in the epidural space without vascular or intrathecal uptake observed. Subsequently, a test dose of 1 cc of 1% lidocaine solution was injected and patient was observed for two minutes without signs or symptoms of complications, including abdominal pain, shortness of breath, bilateral upper or lower extremity weakness, nausea and vomiting, prior to steroid injection. At this point, 2cc or 20mg of dexamethasone was then injected without incident. The patient tolerated the procedure well without signs or symptoms of co mplications prior to being transferred to the recovery area for further monitoring, The patient was then transferred to the recovery area where they were observed for an appropriate period of time after the injection. The patient reported a VAS score of 6 prior to the procedure and a post-procedure VAS of 0. POST OP INSTRUCTIONS The patient was provided a Pain Log to continue to record their response to the target-specific procedure prior to follow-up visit with the referring provider. Additionally, specific post-injection care instructions and a contact number to our office were provided if concerns arise regarding possible complications associated with the procedure are suspected.
== END 2024-05-31 10:46 | disposition home or self-care (01) ==
LOC: RAD 08:59
PROVIDERS: Family Provider Family Medicine; PCP Family Medicine; Referring Provider Physical Medicine & Rehabilitation; Visit Provider Physical Medicine & Rehabilitation
DX: M54.12 Radiculopathy, cervical region (principal); M48.02 Spinal stenosis, cervical region
CPT/HCPCS: 62321; 99152; J1100; J2250; J3490

== ENCOUNTER 2024-08-16 09:17 | Outpatient (CLI) | payer OTHER, SELFPAY ==
[2024-08-16] VITALS (11 sets, daily range): BP systolic 111–147; BP diastolic 56–70; PULSE 77–94; RESP 16–20; TEMP 36.3; O2SAT 94–100
[2024-08-16] MEDS: MIDAZOLAM 2 MG/2 ML VIAL IV (10:58)
[2024-08-16] MEDS: BETAMETHASONE 30 MG/5 ML MDV 12 MG INJ (11:05)
[2024-08-16] MEDS: iopamidoL 15 ML VIAL 3 ML INJ (11:05)
[2024-08-16] MEDS: DEXAMETHASONE 10 MG/ML VIAL 20 MG INJ (11:06)
[2024-08-16] MEDS: LIDOCAINE 1% 20 ML INJ (11:08)
[2024-08-16] MEDS: BETAMETHASONE 30 MG/5 ML MDV 6 MG INJ (11:09)
[2024-08-16] MEDS: MIDAZOLAM 2 MG/2 ML VIAL 1 MG IV (11:12)
--- NOTE | 2024-08-16 11:26 | PM.PROC.IR.1 ---
Date/Time/Diagnoses Date of procedure: 08/16/24 Time of procedure: 11:26 Pre-procedure diagnosis: 1. FORAMINAL STENOSIS WITH LE SYMPTOMS Post-procedure diagnosis: same Procedure Notes Procedure: 1. FLUOROSCOPICALLY GUIDED CONTRAST CONTROLLED TRANSFORAMINAL EPIDURAL STEROID INJECTION - BILATERAL L5/S1 TFESI Indications: Daija is referred by Dr. Leyva for treatment of Foraminal Stenosis with bilateral LE Symptoms Physician: Luis Parada Total Fluoroscopy time (seconds): 17 Total sedation minutes: 23 Complications: none Procedure in detail & Post-procedure care: FINDINGS Foraminal Nerve Root Compression secondary to disc disease and facet hypertrophy DESCRIPTION OF PROCEDURE Following review of allergy and review of potential side effects and complications, including, but not necessarily limited to, infection, allergic reaction, local tissue breakdown, stroke, temporary or permanent nerve injury, paralysis, and possible , the patient indicated that the patient understood and agreed to proceed. An informed consent document was signed by the patient, witnessed by a nurse, and placed in the patient's chart. Additionally, other treatment options including medications, modalities, and physical therapy were reviewed with the patient. After review of previous anaesthesic history and IV conscious sedation the patient was deemed safe to proceed with today?s procedure with IV conscious sedation as ASA class II designation. Safety time-out was performed to confirm patient ID, procedure to be performed and site of procedure. IV sedation was accomplished with a combination of 3mg of Versed was administered by the RN after DO order, titrated to patient comfort during the course of the procedure while the patient remained responsive to all verbal commands In the prone position following sterile prep and drape of the lumbar region, the right L5/S1 posterior neuroforamen was identified fluoroscopically. The skin was anesthetized via a 25-gauge 1.5-inch needle with 1% lidocaine solution. At this point, a 25-gauge 3.5-inch spinal needle was atraumatically introduced and advanced under fluoroscopic guidance through the posterior right L5/S1 neuroforamen to approximately the anterior aspect of the canal. Depth was confirmed on lateral view. Following negative aspiration, injection of approximately 1.5cc of Isovue 200 under live fluoroscopy in the AP view confirmed excellent flow along the nerve root, into the epidural space without vascular or intrathecal uptake observed Radiological data, including multiple fluoroscopic views of the lumbosacral spine, reveal a spinal needle at the right L5/S1 posterior neuroforamen. Subsequent views show flow of contrast material flowing superiorly and inferiorly along the nerve root confirming epidural flow. Subsequently, a test dose of 1.5cc of 1% lidocaine solution was administered and patient was observed for two minutes for signs or symptoms of complications, including abdominal pain, shortness of breath, bilateral upper or lower extremity weakness, nausea and vomiting, prior to steroid injection. At this point, a total of 2cc or 10mg of dexamethasone and 6mg betamethasone was injected without incident. Attention was then refocused to the left L5/S1 level where the identical procedure was replicated. The procedure tolerated the procedure well without signs or symptoms of complications prior to transfer to the recovery area continued monitoring without incident. The patient was then transferred to the recovery area where they were observed for an appropriate time after the injection. The patient reported a VAS score of 7 prior to the procedure and a post-procedure VAS of 0. POST OP INSTRUCTIONS The patient was provided a Pain Log to continue to record their response to the target-specific procedure prior to follow-up visit with their referring physician. Additionally, specific post-injection care instructions and a contact number to our office were provided if concerns arise regarding possible complications associated with the procedure are suspected.
== END 2024-08-16 11:51 | disposition home or self-care (01) ==
LOC: RAD 09:17
PROVIDERS: Family Provider Family Medicine; PCP Family Medicine; Referring Provider Physical Medicine & Rehabilitation; Visit Provider Physical Medicine & Rehabilitation
DX: M51.17 Intervertebral disc disorders with radiculopathy, lumbosacral region (principal); M51.26 Other intervertebral disc displacement, lumbar region; M51.27 Other intervertebral disc displacement, lumbosacral region
CPT/HCPCS: 64483; 99152; 99153; J0702; J1100; J2250

== ENCOUNTER 2025-02-05 13:45 | Outpatient (CLI) | payer OTHER, SELFPAY ==
[2025-02-05] VITALS (8 sets, daily range): BP systolic 121–132; BP diastolic 56–67; PULSE 79–95; RESP 14–20; TEMP 36.9; O2SAT 97–100
[2025-02-05] MEDS: MIDAZOLAM 2 MG/2 ML VIAL IV (15:09)
[2025-02-05] MEDS: BETAMETHASONE 30 MG/5 ML MDV 12 MG INJ (15:13)
[2025-02-05] MEDS: LIDOCAINE 1% 20 ML 5 ML INJ (15:14)
[2025-02-05] MEDS: BETAMETHASONE 30 MG/5 ML MDV 6 MG INJ (15:16)
--- NOTE | 2025-02-05 15:35 | PM.PROC.IR.1 ---
Date/Time/Diagnoses Date of procedure: 02/05/25 Time of procedure: 15:35 Pre-procedure diagnosis: 1. FORAMINAL STENOSIS WITH LE SYMPTOMS Post-procedure diagnosis: same Procedure Notes Procedure: 1. FLUOROSCOPICALLY GUIDED CONTRAST CONTROLLED TRANSFORAMINAL EPIDURAL STEROID INJECTION - BILATERAL L5/S1 TFESI Indications: Daija is referred by Dr. Leyva for treatment of Foraminal Stenosis with bilateral LE Symptoms Physician: Luis Parada Total Fluoroscopy time (seconds): 17 Total sedation minutes: 15 Complications: none Procedure in detail & Post-procedure care: FINDINGS Foraminal Nerve Root Compression secondary to disc disease and facet hypertrophy DESCRIPTION OF PROCEDURE Following review of allergy and review of potential side effects and complications, including, but not necessarily limited to, infection, allergic reaction, local tissue breakdown, stroke, temporary or permanent nerve injury, paralysis, and possible , the patient indicated that the patient understood and agreed to proceed. An informed consent document was signed by the patient, witnessed by a nurse, and placed in the patient's chart. Additionally, other treatment options including medications, modalities, and physical therapy were reviewed with the patient. After review of previous anaesthesic history and IV conscious sedation the patient was deemed safe to proceed with today?s procedure with IV conscious sedation as ASA class II designation. Safety time-out was performed to confirm patient ID, procedure to be performed and site of procedure. IV sedation was accomplished with a combination of 2mg of Versed was administered by the RN after DO order, titrated to patient comfort during the course of the procedure while the patient remained responsive to all verbal commands In the prone position following sterile prep and drape of the lumbar region, the right L5/S1 posterior neuroforamen was identified fluoroscopically. The skin was anesthetized via a 25-gauge 1.5-inch needle with 1% lidocaine solution. At this point, a 25-gauge 3.5-inch spinal needle was atraumatically introduced and advanced under fluoroscopic guidance through the posterior right L5/S1 neuroforamen to approximately the anterior aspect of the canal. Depth was confirmed on lateral view. Following negative aspiration, injection of approximately 1.5cc of Isovue 200 under live fluoroscopy in the AP view confirmed excellent flow along the nerve root, into the epidural space without vascular or intrathecal uptake observed Radiological data, including multiple fluoroscopic views of the lumbosacral spine, reveal a spinal needle at the right L5/S1 posterior neuroforamen. Subsequent views show flow of contrast material flowing superiorly and inferiorly along the nerve root confirming epidural flow. Subsequently, a test dose of 1.5cc of 1% lidocaine solution was administered and patient was observed for two minutes for signs or symptoms of complications, including abdominal pain, shortness of breath, bilateral upper or lower extremity weakness, nausea and vomiting, prior to steroid injection. At this point, a total of 2cc or 10mg of dexamethasone and 6mg betamethasone was injected without incident. Attention was then refocused to the left L5/S1 level where the identical procedure was replicated. The procedure tolerated the procedure well without signs or symptoms of complications prior to transfer to the recovery area continued monitoring without incident. The patient was then transferred to the recovery area where they were observed for an appropriate time after the injection. The patient reported a VAS score of 7 prior to the procedure and a post-procedure VAS of 0. POST OP INSTRUCTIONS The patient was provided a Pain Log to continue to record their response to the target-specific procedure prior to follow-up visit with their referring physician. Additionally, specific post-injection care instructions and a contact number to our office were provided if concerns arise regarding possible complications associated with the procedure are suspected.
== END 2025-02-05 15:42 | disposition home or self-care (01) ==
LOC: RAD 13:46
PROVIDERS: Family Provider Family Medicine; PCP Family Medicine; Referring Provider Physical Medicine & Rehabilitation; Visit Provider Physical Medicine & Rehabilitation
DX: M48.07 Spinal stenosis, lumbosacral region (principal); M51.17 Intervertebral disc disorders with radiculopathy, lumbosacral region; M47.27 Other spondylosis with radiculopathy, lumbosacral region
CPT/HCPCS: 64483; 99152; J0702; J1100; J2250